=== PATIENT | female | born 1990 | race Caucasian/White ===

== ENCOUNTER → 2019-08-26 14:06 | Outpatient (CLI) | payer BC, SELFPAY ==
[2019-08-26 09:04] VITALS: BMI 20.2
[2019-08-26 16:31] LABS: Chlamydia Trachomatis by PCR Negative (Negative); Neisserai gonorrhoeae by PCR Negative (Negative); Probe Check PASS; Sample Adequacy Control PASS; Specimen Processing Control PASS
[2019-08-26 17:13] LABS: Absolute Neutrophil Count 7.3 X10^3/uL (2.0-7.7); Basophil# 0.03 X10^3/uL; Basophil% 0.3 % (0-1); Eosinophil# 0.35 X10^3/uL; Eosinophils% 3.5 % (0-5); Hematocrit 36.5 % (37-47); Hemoglobin 12.1 g/dL (12.0-15.0); Lymphocyte % 17.1 % (19-41); Mean Corp Hgb Conc 33.2 g/dL (32-36); Mean Corpuscular Hgb 29.2 pg (27.0-32.0); Mean Corpuscular Volume 88.2 fL (81-99); Mean Platelet Vol. 12.5 fl (6.2-12.0); Monocyte# 0.55 X10^3/uL; Monocyte% 5.5 % (0-10); NRBC Flagged by Analyzer 0 % (0-5); Neutrophil # 7.28 X10^3/uL (2.7-7.7); Neutrophil % 73.1 % (47-70); Platelet Count 163 K/mm3 (150-450); RBC Distribution Width CV 13.2 % (11.6-14.6); RBC Distribution Width SD 42.9 fl (35.1-43.9); Red Blood Count 4.14 M/mm3 (4.2-5.4)
[2019-08-27 01:49] LABS: Rapid Plasmin Reagin (RPR) NONREACTIVE (NONREACTIVE)
[2019-08-27 10:50] LABS: HIV - WCH Non-Reactive (Nonreactive); Hepatitis B Surface Antigen Non-Reactive (Nonreactive); Rubella IgG 56.8 IU/mL
== END ==
PROVIDERS: Referring Provider Obstetrics & Gynecology; Visit Provider Obstetrics & Gynecology
DX: Z34.80 Encounter for supervision of other normal pregnancy, unspecified trimester (principal)
CPT/HCPCS: 36415; 85025; 86592; 86703; 86762; 86850; 86900; 86901; 87086; 87340; 87491; 87591

== ENCOUNTER → 2019-10-23 09:01 | Outpatient (CLI) | payer BC, SELFPAY ==
[2019-09-29 15:07] VITALS: BMI 20.6
[2019-10-23 09:20] LABS: Absolute Neutrophil Count 5.5 X10^3/uL (2.0-7.7); Basophil# 0.02 X10^3/uL; Basophil% 0.3 % (0-1); Eosinophil# 0.46 X10^3/uL; Hematocrit 34.1 % (37-47); Hemoglobin 11.1 g/dL (12.0-15.0); Lymphocyte % 17.1 % (19-41); Mean Corp Hgb Conc 32.6 g/dL (32-36); Mean Corpuscular Hgb 28.8 pg (27.0-32.0); Mean Corpuscular Volume 88.3 fL (81-99); Mean Platelet Vol. 12.6 fl (6.2-12.0); Monocyte# 0.33 X10^3/uL; Monocyte% 4.3 % (0-10); NRBC Flagged by Analyzer 0 % (0-5); Neutrophil # 5.46 X10^3/uL (2.7-7.7); Neutrophil % 71.6 % (47-70); Platelet Count 115 K/mm3 (150-450); RBC Distribution Width SD 41.7 fl (35.1-43.9); Red Blood Count 3.86 M/mm3 (4.2-5.4); White Blood Count 7.6 K/mm3 (4.4-11.0)
== END ==
PROVIDERS: Internal Medicine Hematology & Oncology; Referring Provider Obstetrics & Gynecology; Visit Provider Obstetrics & Gynecology
DX: O99.119 Other diseases of the blood and blood-forming organs and certain disorders involving the immune mechanism complicating pregnancy, unspecified trimester (principal); D69.6 Thrombocytopenia, unspecified; Z3A.00 Weeks of gestation of pregnancy not specified
CPT/HCPCS: 36415; 85025

== ENCOUNTER → 2019-11-18 10:09 | Outpatient (CLI) | payer BC, SELFPAY ==
[2019-10-23 09:33] VITALS: BMI 20.6
[2019-11-18 10:55] LABS: Absolute Lymphocyte Count 1.28 X10^3/uL (0.83-4.51); Absolute Neutrophil Count 6.2 X10^3/uL (2.0-7.7); Basophil# 0.01 X10^3/uL; Basophil% 0.1 % (0-1); Eosinophil# 0.45 X10^3/uL; Eosinophils% 5.3 % (0-5); Hematocrit 32.6 % (37-47); Hemoglobin 10.5 g/dL (12.0-15.0); Lymphocyte # 1.28 X10^3/ul (4.0); Mean Corp Hgb Conc 32.2 g/dL (32-36); Mean Corpuscular Hgb 28.5 pg (27.0-32.0); Mean Corpuscular Volume 88.6 fL (81-99); Mean Platelet Vol. 12.7 fl (6.2-12.0); Monocyte# 0.51 X10^3/uL; NRBC Flagged by Analyzer 0 % (0-5); Neutrophil % 72.9 % (47-70); Platelet Count 114 K/mm3 (150-450); RBC Distribution Width CV 12.9 % (11.6-14.6); RBC Distribution Width SD 42.1 fl (35.1-43.9); Red Blood Count 3.68 M/mm3 (4.2-5.4); White Blood Count 8.5 K/mm3 (4.4-11.0)
== END ==
PROVIDERS: Internal Medicine Hematology & Oncology; Referring Provider Obstetrics & Gynecology; Visit Provider Obstetrics & Gynecology
DX: O99.119 Other diseases of the blood and blood-forming organs and certain disorders involving the immune mechanism complicating pregnancy, unspecified trimester (principal); D69.6 Thrombocytopenia, unspecified; Z3A.00 Weeks of gestation of pregnancy not specified
CPT/HCPCS: 36415; 85025

== ENCOUNTER → 2019-12-16 09:51 | Outpatient (CLI) | payer BC, SELFPAY ==
[2019-11-18 10:21] VITALS: BMI 20.6
[2019-12-16 10:28] LABS: Absolute Lymphocyte Count 1.36 X10^3/uL (0.83-4.51); Absolute Neutrophil Count 5.8 X10^3/uL (2.0-7.7); Basophil# 0.02 X10^3/uL; Basophil% 0.2 % (0-1); Eosinophil# 0.52 X10^3/uL; Eosinophils% 6.2 % (0-5); Hemoglobin 9.6 g/dL (12.0-15.0); Lymphocyte # 1.36 X10^3/ul (4.0); Lymphocyte % 16.3 % (19-41); Mean Corpuscular Hgb 28.2 pg (27.0-32.0); Mean Platelet Vol. 12.9 fl (6.2-12.0); Monocyte# 0.55 X10^3/uL; Monocyte% 6.6 % (0-10); NRBC Flagged by Analyzer 0 % (0-5); Neutrophil # 5.79 X10^3/uL (2.7-7.7); Neutrophil % 69.4 % (47-70); Platelet Count 123 K/mm3 (150-450); RBC Distribution Width CV 13.2 % (11.6-14.6); RBC Distribution Width SD 41.5 fl (35.1-43.9); Red Blood Count 3.41 M/mm3 (4.2-5.4); White Blood Count 8.4 K/mm3 (4.4-11.0)
[2019-12-16 10:57] LABS: Glucose Challenge Gest 1H 50g 127 mg/dL (70-140)
== END ==
PROVIDERS: Internal Medicine Hematology & Oncology; Referring Provider Obstetrics & Gynecology; Visit Provider Obstetrics & Gynecology
DX: O99.119 Other diseases of the blood and blood-forming organs and certain disorders involving the immune mechanism complicating pregnancy, unspecified trimester (principal); D69.6 Thrombocytopenia, unspecified; Z3A.00 Weeks of gestation of pregnancy not specified
CPT/HCPCS: 82950; 85025

== ENCOUNTER → 2020-01-13 11:03 | Outpatient (CLI) | payer BC, MEDICAID, SELFPAY ==
[2019-12-16 10:25] VITALS: BMI 20.6
[2020-01-13 11:34] LABS: Absolute Lymphocyte Count 1.38 X10^3/uL (0.83-4.51); Absolute Neutrophil Count 6.3 X10^3/uL (2.0-7.7); Basophil# 0.02 X10^3/uL; Basophil% 0.2 % (0-1); Eosinophil# 0.33 X10^3/uL; Eosinophils% 3.8 % (0-5); Hemoglobin 9.4 g/dL (12.0-15.0); Lymphocyte # 1.38 X10^3/ul (4.0); Lymphocyte % 15.7 % (19-41); Mean Corp Hgb Conc 31.3 g/dL (32-36); Mean Corpuscular Hgb 26.6 pg (27.0-32.0); Mean Platelet Vol. 12.7 fl (6.2-12.0); Monocyte# 0.66 X10^3/uL; Monocyte% 7.5 % (0-10); NRBC Flagged by Analyzer 0 % (0-5); Neutrophil % 71.8 % (47-70); Platelet Count 131 K/mm3 (150-450); RBC Distribution Width CV 13.9 % (11.6-14.6); RBC Distribution Width SD 43.4 fl (35.1-43.9); Red Blood Count 3.53 M/mm3 (4.2-5.4); White Blood Count 8.8 K/mm3 (4.4-11.0)
== END ==
PROVIDERS: Internal Medicine Hematology & Oncology; Referring Provider Obstetrics & Gynecology; Visit Provider Obstetrics & Gynecology
DX: O99.119 Other diseases of the blood and blood-forming organs and certain disorders involving the immune mechanism complicating pregnancy, unspecified trimester (principal); D69.6 Thrombocytopenia, unspecified; Z3A.00 Weeks of gestation of pregnancy not specified
CPT/HCPCS: 36415; 85025

== ENCOUNTER → 2020-01-21 07:51 | Outpatient (CLI) | payer BC, MEDICAID, SELFPAY ==
[2020-01-13 11:54] VITALS: BMI 20.6
[2020-01-21 07:59] VITALS: BP 122/64; PULSE 87; RESP 16; TEMP 36.5; O2SAT 100; BMI 24.1
[2020-01-21] MEDS: 0.9% NaCl Peripheral Flush Adult/Peds IV (08:24)
[2020-01-21] MEDS: 0.9% NaCl IVPB Med Flush (250 mL) 15 ML IV (08:28)
== END ==
PROVIDERS: Referring Provider Obstetrics & Gynecology; Visit Provider Obstetrics & Gynecology
DX: O99.019 Anemia complicating pregnancy, unspecified trimester (principal)
CPT/HCPCS: 96365; 96366; J1756; J7050; A4216

== ENCOUNTER → 2020-01-29 07:50 | Outpatient (CLI) | payer BC, MEDICAID, SELFPAY ==
[2020-01-13 11:54] VITALS: BMI 20.6
[2020-01-21 07:59] VITALS: BMI 24.1
[2020-01-29 08:13] VITALS: BP 119/76; PULSE 100; RESP 16; O2SAT 99; BMI 23.3
[2020-01-29] MEDS: 0.9% NaCl VAD Flush IV (08:30)
[2020-01-29 10:26] VITALS: BP 117/66; PULSE 81; RESP 16; O2SAT 99
== END ==
PROVIDERS: Referring Provider Obstetrics & Gynecology; Visit Provider Obstetrics & Gynecology
DX: O99.019 Anemia complicating pregnancy, unspecified trimester (principal)
CPT/HCPCS: 96365; 96366; J1756; J7050; A4216

== ENCOUNTER → 2020-02-05 07:58 | Outpatient (CLI) | payer BC, MEDICAID, SELFPAY ==
[2020-01-21 07:59] VITALS: BMI 24.1
[2020-02-03 11:15] VITALS: BMI 23.3
[2020-02-05 08:06] VITALS: BP 107/71; PULSE 74; RESP 16; TEMP 36.3; O2SAT 99; BMI 24.1
[2020-02-05] MEDS: 0.9% NaCl IVPB Med Flush (250 mL) 15 ML IV (08:08)
[2020-02-05] MEDS: 0.9% NaCl Peripheral Flush Adult/Peds IV (08:10)
== END ==
PROVIDERS: Referring Provider Obstetrics & Gynecology; Visit Provider Obstetrics & Gynecology
DX: O99.019 Anemia complicating pregnancy, unspecified trimester (principal)
CPT/HCPCS: 96365; 96366; J1756; J7050; A4216

== ENCOUNTER → 2020-02-17 09:14 | Outpatient (CLI) | payer MEDICAID, SELFPAY ==
[2020-02-17 09:03] VITALS: BMI 25.0
[2020-02-17 09:36] LABS: Absolute Lymphocyte Count 1.06 X10^3/uL (0.83-4.51); Absolute Neutrophil Count 3.8 X10^3/uL (2.0-7.7); Basophil# 0.03 X10^3/uL; Basophil% 0.5 % (0-1); Eosinophil# 0.42 X10^3/uL; Eosinophils% 7.1 % (0-5); Hematocrit 34.8 % (37-47); Lymphocyte # 1.06 X10^3/ul (4.0); Lymphocyte % 17.9 % (19-41); Mean Corp Hgb Conc 31.6 g/dL (32-36); Mean Corpuscular Hgb 27.9 pg (27.0-32.0); Mean Corpuscular Volume 88.3 fL (81-99); Mean Platelet Vol. 12.7 fl (6.2-12.0); Monocyte# 0.48 X10^3/uL; Monocyte% 8.1 % (0-10); NRBC Flagged by Analyzer 0 % (0-5); Neutrophil # 3.84 X10^3/uL (2.7-7.7); Neutrophil % 64.9 % (47-70); POSITIVE COUNT YES; Platelet Count 97 K/mm3 (150-450); RBC Distribution Width CV 19.2 % (11.6-14.6); RBC Distribution Width SD 60.5 fl (35.1-43.9); Red Blood Count 3.94 M/mm3 (4.2-5.4); White Blood Count 5.9 K/mm3 (4.4-11.0)
[2020-02-17 09:39] LABS: Differential Indicated SCAN CRITERIA MET
[2020-02-17 10:04] LABS: Platelet Estimate SLT DEC (ADEQ); Platelet Morphology LARGE
== END ==
PROVIDERS: Nurse Practitioner Women's Health; Referring Provider Obstetrics & Gynecology; Visit Provider Obstetrics & Gynecology
DX: O99.019 Anemia complicating pregnancy, unspecified trimester (principal); Z3A.00 Weeks of gestation of pregnancy not specified
CPT/HCPCS: 36415; 85025; 87081

== ENCOUNTER → 2020-02-24 08:19 | Outpatient (CLI) | payer MEDICAID, SELFPAY ==
[2020-02-17 09:03] VITALS: BMI 25.0
[2020-02-24 08:47] LABS: Absolute Lymphocyte Count 1.25 X10^3/uL (0.83-4.51); Absolute Neutrophil Count 4.5 X10^3/uL (2.0-7.7); Basophil# 0.02 X10^3/uL; Basophil% 0.3 % (0-1); Eosinophils% 5.9 % (0-5); Hematocrit 35.4 % (37-47); Hemoglobin 11.3 g/dL (12.0-15.0); Lymphocyte # 1.25 X10^3/ul (4.0); Lymphocyte % 18.4 % (19-41); Mean Corp Hgb Conc 31.9 g/dL (32-36); Mean Corpuscular Hgb 28.4 pg (27.0-32.0); Mean Corpuscular Volume 88.9 fL (81-99); Mean Platelet Vol. 12.3 fl (6.2-12.0); Monocyte# 0.58 X10^3/uL; Monocyte% 8.5 % (0-10); NRBC Flagged by Analyzer 0 % (0-5); Neutrophil # 4.48 X10^3/uL (2.7-7.7); Neutrophil % 65.9 % (47-70); Platelet Count 102 K/mm3 (150-450); RBC Distribution Width CV 19.1 % (11.6-14.6); RBC Distribution Width SD 61.5 fl (35.1-43.9); Red Blood Count 3.98 M/mm3 (4.2-5.4); White Blood Count 6.8 K/mm3 (4.4-11.0)
== END ==
PROVIDERS: Referring Provider Obstetrics & Gynecology; Visit Provider Obstetrics & Gynecology
DX: O99.119 Other diseases of the blood and blood-forming organs and certain disorders involving the immune mechanism complicating pregnancy, unspecified trimester (principal); D69.6 Thrombocytopenia, unspecified; Z3A.00 Weeks of gestation of pregnancy not specified
CPT/HCPCS: 36415; 85025

== ENCOUNTER → 2020-03-02 08:28 | Outpatient (CLI) | payer MEDICAID, SELFPAY ==
[2020-02-24 08:51] VITALS: BMI 25.0
[2020-03-02 09:08] LABS: Absolute Lymphocyte Count 1.25 X10^3/uL (0.83-4.51); Absolute Neutrophil Count 4.9 X10^3/uL (2.0-7.7); Basophil# 0.03 X10^3/uL; Basophil% 0.4 % (0-1); Eosinophil# 0.28 X10^3/uL; Eosinophils% 3.9 % (0-5); Hematocrit 38.6 % (37-47); Hemoglobin 11.9 g/dL (12.0-15.0); Lymphocyte # 1.25 X10^3/ul (4.0); Lymphocyte % 17.4 % (19-41); Mean Corp Hgb Conc 30.8 g/dL (32-36); Mean Corpuscular Volume 90.8 fL (81-99); Mean Platelet Vol. 12.5 fl (6.2-12.0); Monocyte# 0.58 X10^3/uL; Monocyte% 8.1 % (0-10); NRBC Flagged by Analyzer 0 % (0-5); Neutrophil # 4.92 X10^3/uL (2.7-7.7); Neutrophil % 68.5 % (47-70); Platelet Count 110 K/mm3 (150-450); RBC Distribution Width CV 18.5 % (11.6-14.6); RBC Distribution Width SD 61.1 fl (35.1-43.9); Red Blood Count 4.25 M/mm3 (4.2-5.4); White Blood Count 7.2 K/mm3 (4.4-11.0)
== END ==
PROVIDERS: Referring Provider Obstetrics & Gynecology; Visit Provider Obstetrics & Gynecology
DX: O99.119 Other diseases of the blood and blood-forming organs and certain disorders involving the immune mechanism complicating pregnancy, unspecified trimester (principal); D69.6 Thrombocytopenia, unspecified; Z3A.00 Weeks of gestation of pregnancy not specified
CPT/HCPCS: 36415; 85025

== ENCOUNTER → 2020-03-09 | Outpatient (CLI) | payer MEDICAID, SELFPAY ==
[2020-03-09 08:49] VITALS: BMI 25.0
--- NOTE | 2020-03-09 15:44 | US_ITS ---
STUDY: SECOND AND THIRD TRIMESTER OBSTETRICAL ULTRASOUND REASON FOR EXAM: Female, 29 years old SGA / FLUID LMP: June 10, 2019 TECHNIQUE: Transabdominal TECHNICAL QUALITY: Adequate. PRIOR ULTRASOUND: None. FINDINGS: There is a single intrauterine fetus. The fetus is in a cephalic presentation. There is demonstrated cardiac activity with a heart rate of 172 bpm. There is a normal amniotic fluid volume. The largest amniotic fluid pocket measures 5.76 cm. The amniotic fluid index (CELINA) is 12.42 cm. The placenta is posterior. There are Grade 3 placental changes. BIOMETRY: BPD: 9.01 cm: 36 weeks, 4 days HC: 32.92 cm: 37 weeks, 4 days AC: 34.18 cm: 38 weeks, 1 days FL: 73.0 cm: 35 weeks, 3 days CI: 82% FL/BPD: 81% FL/AC: 21% HC/AC: 0.96 age by current US: 37 weeks, 3 days. GHAZAL by current US: March 27, 2020. Estimated weight: 3269 grams, +/- 477 grams, 35 %. Age by LMP: 39 weeks, 0 days. GHAZAL by LMP: March 16, 2020. US/OB Limited With Biometrics IMPRESSION: Single intrauterine with estimated gestational age by ultrasound of 37 weeks and 3 days and an GHAZAL of March 27, 2020. Electronically Signed: Polly Mccabe MD at 17:00 EDT Tel , Service support ,
== END | disposition home or self-care (01) ==
PROVIDERS: Referring Provider Obstetrics & Gynecology; Visit Provider Obstetrics & Gynecology
DX: O26.843 Uterine size-date discrepancy, third trimester (principal); Z3A.39 39 weeks gestation of pregnancy
CPT/HCPCS: 76816

== ENCOUNTER → 2020-03-14 09:00 | Outpatient (CLI) | payer MEDICAID, SELFPAY ==
[2020-03-14 08:29] VITALS: BMI 25.0
[2020-03-14 09:11] LABS: Absolute Lymphocyte Count 1.39 X10^3/uL (0.83-4.51); Absolute Neutrophil Count 4.7 X10^3/uL (2.0-7.7); Basophil# 0.02 X10^3/uL; Basophil% 0.3 % (0-1); Eosinophil# 0.34 X10^3/uL; Eosinophils% 4.7 % (0-5); Hematocrit 40.3 % (37-47); Hemoglobin 12.6 g/dL (12.0-15.0); Lymphocyte # 1.39 X10^3/ul (4.0); Lymphocyte % 19.3 % (19-41); Mean Corp Hgb Conc 31.3 g/dL (32-36); Mean Corpuscular Hgb 28.1 pg (27.0-32.0); Mean Platelet Vol. 12.3 fl (6.2-12.0); Monocyte# 0.67 X10^3/uL; Monocyte% 9.3 % (0-10); NRBC Flagged by Analyzer 0 % (0-5); Neutrophil # 4.72 X10^3/uL (2.7-7.7); Neutrophil % 65.4 % (47-70); Platelet Count 108 K/mm3 (150-450); RBC Distribution Width CV 17.9 % (11.6-14.6); Red Blood Count 4.48 M/mm3 (4.2-5.4); White Blood Count 7.2 K/mm3 (4.4-11.0)
== END ==
PROVIDERS: Referring Provider Obstetrics & Gynecology; Visit Provider Obstetrics & Gynecology
DX: O99.119 Other diseases of the blood and blood-forming organs and certain disorders involving the immune mechanism complicating pregnancy, unspecified trimester (principal); D69.6 Thrombocytopenia, unspecified; Z3A.00 Weeks of gestation of pregnancy not specified
CPT/HCPCS: 36415; 85025; 87635; G2023; U0003

== ENCOUNTER → 2020-03-14 10:25 | Outpatient (CLI) | payer MEDICAID, SELFPAY ==
[2020-03-14 08:29] VITALS: BMI 25.0
== END ==
PROVIDERS: Visit Provider Obstetrics & Gynecology
DX: Z11.59 Encounter for screening for other viral diseases (principal)
CPT/HCPCS: 87635; G2023; U0003

== ENCOUNTER 2020-03-15 22:37 | Inpatient (IN) | payer MEDICAID, SELFPAY ==
[2020-03-14 08:29] VITALS: BMI 25.0
[2020-03-15 22:19] VITALS: BP 106/76; PULSE 98
[2020-03-15 22:20] VITALS: PULSE 111; O2SAT 98; BMI 25.5
[2020-03-15 22:21] VITALS: TEMP 37
[2020-03-15 22:35] LABS: Absolute Lymphocyte Count 1.77 X10^3/uL (0.83-4.51); Absolute Neutrophil Count 9.3 X10^3/uL (2.0-7.7); Basophil# 0.03 X10^3/uL; Basophil% 0.2 % (0-1); Eosinophil# 0.34 X10^3/uL; Eosinophils% 2.8 % (0-5); Hemoglobin 12.1 g/dL (12.0-15.0); Lymphocyte # 1.77 X10^3/ul (4.0); Lymphocyte % 14.4 % (19-41); Mean Corp Hgb Conc 31.8 g/dL (32-36); Mean Corpuscular Hgb 28.3 pg (27.0-32.0); Mean Corpuscular Volume 88.8 fL (81-99); Mean Platelet Vol. 13.2 fl (6.2-12.0); Monocyte# 0.79 X10^3/uL; Monocyte% 6.4 % (0-10); NRBC Flagged by Analyzer 0 % (0-5); Neutrophil # 9.27 X10^3/uL (2.7-7.7); Neutrophil % 75.6 % (47-70); Platelet Count 121 K/mm3 (150-450); RBC Distribution Width CV 17.9 % (11.6-14.6); RBC Distribution Width SD 57.5 fl (35.1-43.9); Red Blood Count 4.28 M/mm3 (4.2-5.4); White Blood Count 12.3 K/mm3 (4.4-11.0)
[2020-03-15] MEDS: Lactated Ringers 500 ML 999 ML IV (23:02)
[2020-03-15 23:22] VITALS: BP 121/80; PULSE 93; TEMP 37.2; O2SAT 98; O2SAT 99
[2020-03-15] MEDS: Lactated Ringers 1,000 ML 200 ML IV (23:32)
[2020-03-16] VITALS (84 sets, daily range): BP systolic 79–128; BP diastolic 49–81; PULSE 71–127; RESP 14–18; TEMP 36.4–37.4; O2SAT 95–100
[2020-03-16] MEDS: fentaNYL-bupivacaine (epidural) 100 ML BAG EPIDURAL (01:24)
[2020-03-16 01:48] LABS: Probe Check PASS; Specimen Processing Control PASS
[2020-03-16] MEDS: Lactated Ringers 500 ML 999 ML IV (02:10)
[2020-03-16] MEDS: Lactated Ringers 1,000 ML 200 ML IV (04:11)
--- NOTE | 2020-03-16 05:03 | PCM.HP.OB ---
- Problem List (1) Active labor at term Status: Acute (2) Uterine size-date discrepancy in third trimester Status: Acute Comment: growth us ordered 03/09, growth normal (3) Status: Acute Qualifiers: Comment: declined ntd, genetic and carrier testing. anatomy normal (4) Supervision of other normal Status: Acute Comment: PRR GHAZAL 03/15/20 girl PC: Chavez BF: Gaby Meeks) (5) Thrombocytopenia complicating Status: Chronic Comment: IOL 40 weeks, steroid dose pack given 37 wks, severe while last time, patient was transferred to [facility] during labor last due to low platelets. family history of ITP. s/p heme consult (6) Anemia affecting Status: Acute Qualifiers: Comment: Hem consult (7) Sterilization Status: Acute Comment: title 19 signed 01/12. plan PPTL History Date of Admission: 03/16/20 Final GHAZAL: 03/15/20 Gestational age: 40 Weeks and 1 Days History of this : This is a 29 year-old, at 40 weeks gestational age presents IAL 5 cm regular ctx, no vb lof good fm. Medical History: Medical History (Last Reviewed 03/14/20 @ 08:28 by Teodora Moe) Adenomyosis of uterus Onset Date: ~09/2018 N80.0 Exploratory laparoscopy Onset Date: ~09/2018 H/O methicillin resistant Staphylococcus aureus Onset Date: ~2017 Z86.14 Whooping cough A37.90 Surgical History: Surgical History (Last Reviewed 03/14/20 @ 08:28 by Teodora Moe) History of endoscopy Z98.890 Allergies meperidine [From Demerol] Allergy (Severe, Verified 03/15/20 10:13) Other vancomycin Allergy (Severe, Verified 03/15/20 10:13) Anaphylaxis Home Medications: Home Medications multivitamin no.47-iron fum 27 mg-folate no.1 1 mg-dha 300 mg capsule 1 cap PO DAILY cap 08/26/19 Ferrous Sulfate [Iron] 325 mg PO DAILY 02/11/20 Smoking Status: Former smoker Number of Fetus(es): 1 NST - FHR Rate Baby A Baseline: 130 Variability:: Moderate Accelerations:: 15 x 15 Decelerations:: None NST Reactive:: Appropriate for gestational age FHR Category:: Category I Uterine Activity:: q 3-5 History Past Pregnancies: Past Pregnancies Pregancy History 2 Elective abortions Hx Para 1 Spontaneous abortions Hx # Term Pregnancies 1 Ectopic pregnancies Hx # Pregnancies Multiple births # of living children 1 Past Pregnancies Del. Date Name GA/Weeks Outcome Route Bth Weight Gen Labor Lgth Anesthesia Del Locatn Provider FOB 06/16/10 Chavez 40 live - full term 6lbs 4oz Male epidural [facility] Delivery Date: 06/16/10 On 08/26/19 @ 09:21 Shara Mcelroy Started pitocin at [facility], transferred to [facility] due to thromocytopenia. Thromocytopenia throughout pregancy Labs: Mom's Problem List Problem Status Onset Code Active labor at term Acute Mom's Labs & Results 03/15/20 03/15/20 03/15/20 22:20 22:20 23:04 WBC 12.3 H RBC 4.28 Hgb 12.1 Hct 38.0 MCV 88.8 MCH 28.3 MCHC 31.8 L RDW Std Deviation 57.5 H RDW Coeff of Farhan 17.9 H Plt Count 121 L MPV 13.2 H Immature Gran % (Auto) 0.600 Neut % (Auto) 75.6 H Lymph % (Auto) 14.4 L [place] % (Auto) 6.4 Eos % (Auto) 2.8 Baso % (Auto) 0.2 Absolute Neuts (auto) 9.3 H Absolute Lymphs (auto) 1.77 Nucleated RBC % 0 COVID-19 (BREA) Not Detected Blood Type A POSITIVE Antibody Screen NEGATIVE Course Did the patient receive Yes care? Labs Blood Type: A RH: POSITIVE RPR/VDRL/Syphilis Nonreactive Rubella status Immune HbSAg Negative Date Done: 08/26/19 Chlamydia Negative Gonorrhea Negative HIV/AIDS Non-Reactive Group B Strep: Negative Current Obstetrical History Gestational Diabetes No Incompetent Cervix No Infertility No IUGR No Macrosomia No Hypertension/Pre-eclampsia No Placenta Previa/Abruption No PTL/PROM No Uterine anomaly No Oligohydramnios No Polyhydramnios No Multiple gestation No Past Medical History Asthma Yes: childhood Diabetes No Hypertension No Heart disease No Mitral valve prolapse No Neurologic/Seizure disorder/ No Migraines Kidney disease No Liver disease No Varicosities No Clotting disorders/Hx of DVT No Thyroid Dysfunction No Other medical diseases No Psychiatric disorders No Major trauma No Abnormal PAP smear Yes: nothing Sleep apnea No Mammogram in the last 2 years No Social History Alleged father Gaby Moreno Hx Smoking Yes Smoking Status Former smoker Expected Delivery Method: Spontaneous Vaginal Review of Systems Constitutional: Denies: Fever, Malaise Eyes: Denies: Blurred vision, Vision Change HEENT: Denies: Head Aches, Visual Changes Cardiovascular: Denies: Chest Pain, Palpitations Respiratory: Denies: Cough, Shortness of Breath, Wheezing Gastrointestinal: Denies: Abdominal Pain, Diarrhea, Nausea, Vomiting Genitourinary: Denies: Dysuria, Hematuria Musculoskeletal: Denies: Joint Pain, Muscle pain Skin: Denies: Lesions, Rash Neurological: Denies: Blurred vision, Focal weakness, Headaches Psychiatric: Denies: Anxiety, Depression Endocrine: Denies: Heat/ Cold Intolerance Hematologic/ Lymphatic: Denies: Easy Bruising, Easy Bleeding Physical Exam Vitals: Vital Signs Temp Pulse BP Pulse Ox 97.5 F L 97 99/62 99 03/16/20 04:15 03/16/20 04:15 03/16/20 04:15 03/16/20 04:12 General: Alert, Cooperative, No apparent distress HEENT: Atraumatic, Normocephalic. Negative for: Thyromegaly, Lymphadenopathy Cardiovascular: Regular rate Lungs: Normal air movement Abdomen: Soft, Non Tender, Gravid Neurological: Deep Tendon Reflexes 2+/4 and Symmetrical, Neuro grossly intact. Negative for: Clonus [employer]END[employer] MANAGER: Normal external genitalia. Negative for: Vulvar lesions Estimated gestational size: Appropriate for gestational size Presentation: Cephalic Cervix Dilation (cm): 5 Assessment/Plan All Active Problems (Last Reviewed 03/14/20 @ 08:28 by Teodora Moe) Active labor at term (Acute) Uterine size-date discrepancy in third trimester (Acute) (Acute) Supervision of other normal (Acute) Anemia affecting (Acute) Sterilization (Acute) H/O thrombocytopenia (Resolved) Nausea and vomiting during (Resolved) This is a 29 year-old, at 40 weeks gestational age presents IAL. Patient presents IAL, plan expectant management for , arom clear fluid. Pain management: plans epidural if platelets high enough. GBS negative. Management of any complications: h/o ITP vs gestational thrombocytopenia. per anesthesia ordered a pack of platelets I have reviewed the [facility] and made any clinically relevant updates.
--- NOTE | 2020-03-16 05:13 | OP.PCM_ITS ---
Problem List (1) Active labor at term Status: Acute (2) Uterine size-date discrepancy in third trimester Status: Acute Comment: growth us ordered 03/09, growth normal (3) Status: Acute Qualifiers: Comment: declined ntd, genetic and carrier testing. anatomy normal (4) Supervision of other normal Status: Acute Comment: PRR GHAZAL 03/15/20 girl PC: Chavez BF: Gaby Meeks) (5) Thrombocytopenia complicating Status: Chronic Comment: IOL 40 weeks, steroid dose pack given 37 wks, severe while last time, patient was transferred to [facility] during labor last due to low platelets. family history of ITP. s/p heme consult (6) Anemia affecting Status: Acute Qualifiers: Comment: Hem consult (7) Sterilization Status: Acute Comment: title 19 signed 01/12. plan PPTL Vaginal Delivery Maternal Presentation: Active Labor ial 40 weeks Amniotic Membrane Rupture Type: Artificial Amniotic Fluid Description: Bloody Final GHAZAL: 03/15/20 Gestational age: 40 Weeks and 1 Days Date of Procedure: 03/16/20 Pre-Operative Diagnosis: ial Post-Operative Diagnosis: same Surgery/ Procedure Performed: Spontaneous Vaginal Delivery Type of Anesthesia: Epidural Description of Procedure: Patient began pushing and delivered the head in the JUAN ANTONIO presentation. The head was delivered atraumatically and a loose nuchal cord ?1 was identified and easily reduced over the 's head. The anterior and posterior shoulders delivered without complication followed by the rest of the infant and the infant was placed on the maternal abdomen. Delayed cord clamping was employed for approximately 60 seconds. Cord was clamped and cut and gentle traction was applied to the cord and the placenta delivered spontaneously immediately following it was noted to be intact with three-vessel cord. The perineum and vagina were inspected and noted to have no laceration. EBL was 100 cc. Patient and tolerated delivery well. Placental Delivery Description: Spontaneous Placenta Disposition: [facility] Cord Vessel Description: 3 Vessels Cord Entanglement: Around neck x 1, loose Estimated Blood Loss: 100 A gender: Female (1 minute): 7 (5 minute): 9 Episiotomy Description: None Laceration: None Medications given after delivery: IV Pitocin Complications: None Multi Select Codes - Urinary/Genital Urinary/Genital CPT Codes: 72376 Vaginal Delivery [facility]
[2020-03-16] MEDS: Oxytocin 30 units/NS 500 ml 30 UNITS/500 ML IV.SOLN 334 UNITS IV (05:58)
[2020-03-16 07:50] LABS: Hematocrit 34.9 % (37-47); Mean Corp Hgb Conc 31.5 g/dL (32-36); Mean Corpuscular Hgb 28.3 pg (27.0-32.0); Mean Corpuscular Volume 89.7 fL (81-99); Mean Platelet Vol. 11.6 fl (6.2-12.0); Platelet Count 100 K/mm3 (150-450); RBC Distribution Width CV 18.2 % (11.6-14.6); RBC Distribution Width SD 59.5 fl (35.1-43.9); Red Blood Count 3.89 M/mm3 (4.2-5.4); White Blood Count 15.5 K/mm3 (4.4-11.0)
[2020-03-16] MEDS: Naproxen 250 MG Tablet 500 MG PO (15:30)
[2020-03-16] MEDS: Acetaminophen 500 MG Tablet 1000 MG PO (21:24)
[2020-03-17 05:11] VITALS: BP 95/61; PULSE 76
[2020-03-17 05:20] VITALS: BP 95/61; PULSE 76; RESP 16; TEMP 36.4
[2020-03-17] MEDS: Naproxen 250 MG Tablet 500 MG PO (07:28)
--- NOTE | 2020-03-17 08:44 | PCM.PN.OB ---
Patient Problems: Active and Suspected Problems (Last Reviewed 03/14/20 @ 08:28 by Teodora Moe) Active labor at term (Acute) Subjective: doing well no complaints pain controlled no CP SOB N V ambulating well tolerating po lochia moderate, going well - Physical Exam Vitals/I&O's: Vital Signs Temp Pulse Resp BP Pulse Ox 97.5 F L 76 16 95/61 99 03/17/20 05:20 03/17/20 05:20 03/17/20 05:20 03/17/20 05:20 03/16/20 16:13 Oxygen Delivery Method Room Air Weight: 153 lb 6.4 oz Body Mass Index (BMI) 25.5 Intake and Output for Last 24 Hours 03/15/20 03/16/20 03/17/20 23:59 23:59 23:59 Intake Total 500 / 500 2153.34 / 2153.34 Output Total 100 / 100 1275 / 1275 Balance 400 / 400 878.34 / 878.34 General: Alert, Oriented x3 Current Medications Acetaminophen (Tylenol) 1,000 mg PO Q8H PRN PRN PRN Reason: Pain Score 1-3/10 Last Admin: 03/16/20 21:24 Dose: 1,000 mg Documented by: Bisacodyl (Dulcolax) 10 mg RECTAL UD PRN PRN Reason: If no BM Dibucaine (Dibucaine) 1 applic TOPICAL TID PRN PRN; Protocol PRN Reason: Discomfort Hydrocortisone (Hytone) 1 applic TOPICAL TID PRN PRN; Protocol PRN Reason: Discomfort Methylergonovine Maleate (Methergine) 0.2 mg IM X1 PRN PRN Reason: Excess bleeding/uterine atony Naproxen (Naprosyn) 500 mg PO Q8H PRN PRN PRN Reason: Pain Score 1-3/10 Last Admin: 03/17/20 07:28 Dose: 500 mg Documented by: Ondansetron HCl (Zofran) 4 mg IV Q4H PRN PRN PRN Reason: Nausea Oxycodone HCl (Oxyir) 5 - 10 mg PO Q4H PRN PRN PRN Reason: Pain Score 4-10/10 Senna/Docusate Sodium (Senokot-S, Paula-Colace) 1 - 2 tablet PO DAILY PRN PRN PRN Reason: Constipation Simethicone (Mylicon) 80 mg PO PCHS PRN PRN Reason: Indigestion/Stomach pain Sodium Chloride () 5 - 15 ml IV UD PRN PRN Reason: SALINE FLUSH Medical Necessity - Tobacco Use Smoking Status: Former smoker Tobacco Use: Non-smoker Assessment/Plan All Active Problems (Last Reviewed 03/14/20 @ 08:28 by Teodora Moe) Active labor at term (Acute) Uterine size-date discrepancy in third trimester (Acute) (Acute) Supervision of other normal (Acute) Anemia affecting (Acute) Sterilization (Acute) H/O thrombocytopenia (Resolved) Nausea and vomiting during (Resolved) s/p PPD # 1 1. routine post delivery care 2. breast feeding- support given 3. rh positive 4. rubella immune
[2020-03-17 08:53] VITALS: BP 101/60; PULSE 74; RESP 16; TEMP 37
--- NOTE | 2020-03-17 08:53 | DCINST_ITS ---
Discharge Diet: No Restrictions Discharge Activity: Return to Normal Activity, May not drive while taking narcotic pain medications., May Shower May resume sexual activity in: 4-6 weeks Call your doctor if your incision/area has: Continuous Slow Oozing, Sudden Increased Bleeding, Increased Pain/ Swelling, Increased Redness, Foul Smelling Discharge Additional Instructions: If you experience any of the following, contact your healthcare provider. * Bleeding that soaks a pad every hour for 2 hours * Fever 100.4 or higher * Unrelieved incision or abdominal pain * Swelling, redness, discharge or bleeding from your incision or episiotomy site * Your incision begins to separate * Problems urinating (including inability to urinate or burning while urinating). * Visual changes * Severe headache * Flu-like symptoms * Pain or redness in one of both of your breasts * Pain, warmth, tenderness or swelling in your legs, especially the calf area * Frequent nausea and vomiting * Symptoms of depression or anxiety If you experience any of the following, call 911 or go to the nearest Emergency Room. * Chest pain * Problems breathing * Seizure activity * Partial or complete paralysis of a body part, slurred speech, weakness or drooping of the face, or a sudden inability to walk or hold your balance Allergies/Adverse Reactions: Allergies meperidine [From Demerol] Allergy (Severe, Verified 03/15/20 10:13) Other vancomycin Allergy (Severe, Verified 03/15/20 10:13) Anaphylaxis Medications to take at Discharge multivitamin no.47-iron fum 27 mg-folate no.1 1 mg-dha 300 mg capsule 1 cap PO DAILY cap 08/26/19 Ferrous Sulfate [Iron] 325 mg PO DAILY 02/11/20 Please Follow Up With: Mounika Cantu MD - [phone] When: Call to make an appointment with your doctor in 6 weeks. If you had elevated Blood pressure or 4th degree laceration you will need to be seen in 2 weeks. Primary Care Physician: Care Physician,No Primary [Primary Care Provider] - Test Results: Test results from this visit will be discussed in further detail at your follow- up appointment, if applicable.
[2020-03-17 09:19] VITALS: BP 101/60; PULSE 74
== END 2020-03-17 11:20 | disposition home or self-care (01) | DRG 560 ==
LOC: WPOUT 22:40 → WP 22:40
PROVIDERS: Admitting Provider Obstetrics & Gynecology; Visit Provider Obstetrics & Gynecology
DX: O99.12 Other diseases of the blood and blood-forming organs and certain disorders involving the immune mechanism complicating childbirth (principal); D69.6 Thrombocytopenia, unspecified; O99.02 Anemia complicating childbirth; D64.9 Anemia, unspecified; O69.81X0 Labor and delivery complicated by cord around neck, without compression, not applicable or unspecified; O26.843 Uterine size-date discrepancy, third trimester; Z3A.40 40 weeks gestation of pregnancy; Z37.0 Single live birth; Z87.891 Personal history of nicotine dependence; Z83.2 Family history of diseases of the blood and blood-forming organs and certain disorders involving the immune mechanism
CPT/HCPCS: 36415; 59025; 59050; 85025; 85027; 86850; 86900; 86901; 87635; 99218; G2023; J7120; G0378; U0003

== ENCOUNTER → 2020-04-26 16:39 | Outpatient (CLI) | payer MEDICAID, SELFPAY ==
[2020-04-26 14:36] VITALS: BMI 25.5
[2020-05-01 01:16] LABS: HPV APTIMA, High Risk Negative (Negative)
== END ==
PROVIDERS: Referring Provider Obstetrics & Gynecology; Visit Provider Obstetrics & Gynecology
DX: Z12.4 Encounter for screening for malignant neoplasm of cervix (principal)
CPT/HCPCS: 87624; 88175; G0145

== ENCOUNTER → 2020-04-28 18:05 | Outpatient (CLI) | payer MEDICAID, SELFPAY ==
[2020-04-26 14:36] VITALS: BMI 25.5
== END ==
PROVIDERS: Referring Provider Anesthesiology; Visit Provider Anesthesiology
DX: Z11.59 Encounter for screening for other viral diseases (principal); O99.019 Anemia complicating pregnancy, unspecified trimester; Z3A.00 Weeks of gestation of pregnancy not specified
CPT/HCPCS: 87635; 94799; C9803; U0003

== ENCOUNTER → 2020-07-15 | Outpatient (CLI) | payer MEDICAID, SELFPAY ==
--- NOTE | 2020-05-03 06:31 | PCM.HP.STD ---
Problem List (1) Sterilization Status: Acute History of Present Illness Date of Admission: 05/03/20 The patient is a 29 year old F presents for sterilization. Past Medical History Medical History: Medical History (Last Reviewed 04/26/20 @ 14:27 by Teodora Moe) Adenomyosis of uterus Onset Date: ~09/2018 N80.0 Exploratory laparoscopy Onset Date: ~09/2018 H/O methicillin resistant Staphylococcus aureus Onset Date: ~2016 Z86.14 Whooping cough A37.90 Allergies meperidine [From Demerol] Allergy (Severe, Verified 04/26/20 14:28) Other vancomycin Allergy (Severe, Verified 04/26/20 14:28) Anaphylaxis Home Medications: Ambulatory Orders Medication Instructions Recorded NK 04/25/20 Surgical History: Surgical History (Last Reviewed 04/26/20 @ 14:27 by Teodora Moe) History of endoscopy Z98.890 Smoking Status: Former smoker Tobacco Use: Non-smoker Review of Systems Constitutional: Denies: Fever, Malaise Eyes: Denies: Blurred vision, Vision Change HEENT: Denies: Head Aches, Visual Changes Cardiovascular: Denies: Chest Pain, Palpitations Respiratory: Denies: Cough, Shortness of Breath, Wheezing Gastrointestinal: Denies: Abdominal Pain, Diarrhea, Nausea, Vomiting Genitourinary: Denies: Dysuria, Hematuria Musculoskeletal: Denies: Joint Pain, Muscle pain Skin: Denies: Lesions, Rash Neurological: Denies: Blurred vision, Focal weakness, Headaches Psychiatric: Denies: Anxiety, Depression Endocrine: Denies: Heat/ Cold Intolerance Hematologic/ Lymphatic: Denies: Easy Bruising, Easy Bleeding VTE Information - Inpt Only VTE Present on Admission: No - Physical Exam Vitals/I&O's: Body Mass Index (BMI) 25.5 General: Alert, Oriented x3, Cooperative HEENT: Atraumatic, EOMI, Normocephalic Neck: Supple Lungs: Clear to auscultation, Normal air movement Cardiovascular: Regular rate, No murmurs Abdomen: Bowel Sounds Present, Soft, Non Tender Extremities: No edema Skin: No rashes, No breakdown Musculoskeletal: No Tenderness to Palpation of Joints or Extremities Neurological: Neuro grossly intact Psych/Mental Status: Normal Affect, Appropriate Assessment/Plan All Active Problems (Last Reviewed 04/26/20 @ 14:27 by Teodora Montalvo Sterilization (Acute) Active labor at term (Resolved) Anemia affecting (Resolved) H/O thrombocytopenia (Resolved) Nausea and vomiting during (Resolved) (Resolved) Sterilization (Resolved) Supervision of other normal (Resolved) Thrombocytopenia complicating (Resolved) Uterine size-date discrepancy in third trimester (Resolved) 29 yo presents for sterilization plan laparoscopic bilateral salpingectomy After discussing the patient's diagnosis and treatment plan options, patient wishes to proceed with surgical management. I have discussed with the patient the risks, benefits, and alternatives of the procedure which include but are not limited to risks of anesthesia, bleeding, infection, possible damage to bowel, bladder, or surrounding vasculature which could lead to additional surgery to evaluate any complications. Patient agrees to procedure and wishes to proceed. ACOG/uptodate references given for additional information regarding procedure. UPDATE- I have seen the patient and performed any clinically relevant updates to the history and physical exam. Mounika Cantu MD
[2020-05-10 13:50] VITALS: BMI 21.8
== END | disposition home or self-care (01) ==
LOC: SDC 13:33
PROVIDERS: Referring Provider Obstetrics & Gynecology; Visit Provider Obstetrics & Gynecology
DX: Z01.818 Encounter for other preprocedural examination (principal); Z20.828 Contact with and (suspected) exposure to other viral communicable diseases; Z87.891 Personal history of nicotine dependence

== ENCOUNTER → 2020-10-17 14:45 | Outpatient (CLI) | payer MEDICAID, SELFPAY ==
[2020-10-17 14:10] VITALS: BMI 22.8
[2020-10-17 15:00] LABS: Absolute Neutrophil Count 7.2 X10^3/uL (2.0-7.7); Basophil# 0.03 X10^3/uL; Basophil% 0.3 % (0-1); Eosinophil# 0.23 X10^3/uL; Eosinophils% 2.5 % (0-5); Hematocrit 37.5 % (37-47); Hemoglobin 12.7 g/dL (12.0-15.0); Lymphocyte % 14.1 % (19-41); Mean Corp Hgb Conc 33.9 g/dL (32-36); Mean Corpuscular Hgb 29.7 pg (27.0-32.0); Mean Corpuscular Volume 87.6 fL (81-99); Mean Platelet Vol. 12.2 fl (6.2-12.0); Monocyte% 4.4 % (0-10); NRBC Flagged by Analyzer 0 % (0-5); Neutrophil # 7.19 X10^3/uL (2.7-7.7); Neutrophil % 78.3 % (47-70); Platelet Count 148 K/mm3 (150-450); RBC Distribution Width CV 11.9 % (11.6-14.6); RBC Distribution Width SD 38.5 fl (35.1-43.9); Red Blood Count 4.28 M/mm3 (4.2-5.4); White Blood Count 9.2 K/mm3 (4.4-11.0)
[2020-10-17 17:05] LABS: Amphetamine Urine VISTA NEGATIVE (<1000 ng/mL); Barbiturate Urine VISTA NEGATIVE (< 200 ng/mL); Benzodiazepine Urine VISTA NEGATIVE (< 200 ng/mL); Cocaine Urine VISTA NEGATIVE (< 300 ng/mL); Ecstacy Urine VISTA NEGATIVE (< 500 ng/mL); Methadone Urine VISTA NEGATIVE (< 300 ng/mL); PCP Urine VISTA NEGATIVE (< 25 ng/mL); THC Urine VISTA NEGATIVE (< 50 ng/mL); Vista UDS pH Range 5
[2020-10-19 15:01] LABS: HIV - WCH Non-Reactive (Nonreactive); Hepatitis B Surface Antigen Non-Reactive (Nonreactive); Hepatitis C Antibody Non-Reactive (Nonreactive); Rubella IgG Reactive (Nonreactive)
[2020-10-20 03:03] LABS: Rapid Plasmin Reagin (RPR) NONREACTIVE (NONREACTIVE)
[2020-10-20 03:07] LABS: Chlamydia By Nucleic Acid AMP Negative (Negative)
[2020-10-20 13:05] LABS: Gonococcus By Nucleic Acid AMP Negative (Negative)
== END ==
PROVIDERS: Referring Provider Obstetrics & Gynecology; Visit Provider Obstetrics & Gynecology
DX: Z34.90 Encounter for supervision of normal pregnancy, unspecified, unspecified trimester (principal)
CPT/HCPCS: 36415; 80307; 85025; 86592; 86703; 86762; 86803; 86850; 86900; 86901; 87086; 87340; 87491; 87591

== ENCOUNTER → 2021-02-23 08:34 | Outpatient (CLI) | payer MEDICAID, SELFPAY ==
[2021-02-10 14:47] VITALS: BMI 23.6
[2021-02-23 08:52] LABS: Absolute Lymphocyte Count 0.99 X10^3/uL (0.83-4.51); Absolute Neutrophil Count 4.7 X10^3/uL (2.0-7.7); Basophil# 0.02 X10^3/uL; Basophil% 0.3 % (0-1); Eosinophil# 0.41 X10^3/uL; Eosinophils% 6.2 % (0-5); Hematocrit 31.5 % (37-47); Lymphocyte # 0.99 X10^3/ul (0.83-4.51); Mean Corp Hgb Conc 31.7 g/dL (32-36); Mean Corpuscular Hgb 27.8 pg (27.0-32.0); Mean Corpuscular Volume 87.5 fL (81-99); Mean Platelet Vol. 12.9 fl (6.2-12.0); Monocyte# 0.41 X10^3/uL; Monocyte% 6.2 % (0-10); NRBC Flagged by Analyzer 0 % (0-5); Neutrophil # 4.72 X10^3/uL (2.7-7.7); Neutrophil % 71.2 % (47-70); Platelet Count 108 K/mm3 (150-450); RBC Distribution Width SD 41.1 fl (35.1-43.9); White Blood Count 6.6 K/mm3 (4.4-11.0)
[2021-02-23 09:06] LABS: Glucose Challenge Gest 1H 50g 145 mg/dL (70-140)
== END ==
PROVIDERS: Nurse Practitioner Women's Health; Referring Provider Obstetrics & Gynecology; Visit Provider Obstetrics & Gynecology
DX: O99.119 Other diseases of the blood and blood-forming organs and certain disorders involving the immune mechanism complicating pregnancy, unspecified trimester (principal); D69.6 Thrombocytopenia, unspecified; Z13.1 Encounter for screening for diabetes mellitus; Z3A.00 Weeks of gestation of pregnancy not specified
CPT/HCPCS: 36415; 82950; 85025

== ENCOUNTER → 2021-02-27 07:34 | Outpatient (CLI) | payer MEDICAID, SELFPAY ==
[2021-02-23 09:05] VITALS: BMI 23.6
--- NOTE | 2021-02-27 07:42 | US_ITS ---
STUDY: SECOND AND THIRD TRIMESTER OBSTETRICAL ULTRASOUND - LIMITED REASON FOR EXAM: Female, 30 years old placenta follow-up LMP: 08/07/2020. PRIOR ULTRASOUND: None. TECHNIQUE: Transabdominal and Transvaginal TECHNICAL QUALITY: Adequate. FINDINGS: There is a single intrauterine fetus. The fetus is in a cephalic presentation. There is demonstrated cardiac activity with a heart rate of 137 bpm. There is a normal amniotic fluid volume. The placenta is anterior in location and is not low lying. There are Grade 0 placental changes. The cervix measures 3.5 cm in length. BIOMETRY: Age by LMP: 29 weeks, 1 days. GHAZAL by LMP: 05/14/2021. IMPRESSION: The placenta is anterior in location and is not low-lying. Electronically Signed: Slim Veliz MD at 9:22 EDT , Service support , STUDY: FIRST TRIMESTER OBSTETRICAL ULTRASOUND REASON FOR EXAM: Female, 30 years old placenta follow-up LMP: 08/07/2020 TECHNIQUE: Transvaginal TECHNICAL QUALITY: Adequate. PRIOR ULTRASOUND: None. FINDINGS: The cervix measures 3.5 cm in length. The placenta is in anterior position and not low-lying. US/OB Limited (No Biometrics) IMPRESSION: The cervical length is 3.5 cm. The placenta is anterior in location and not low-lying. Electronically Signed: Slim Veliz MD at 9:26 EDT , Service support ,
== END ==
PROVIDERS: Referring Provider Nurse Practitioner Women's Health; Visit Provider Nurse Practitioner Women's Health
DX: O44.42 Low lying placenta NOS or without hemorrhage, second trimester (principal); Z3A.00 Weeks of gestation of pregnancy not specified
CPT/HCPCS: 76815; 76817

== ENCOUNTER → 2021-02-28 06:42 | Outpatient (CLI) | payer MEDICAID, SELFPAY ==
[2021-02-23 09:05] VITALS: BMI 23.6
[2021-02-28 07:29] LABS: Glucose GTT-Gestation. Fasting 79 mg/dL (<105)
[2021-02-28 08:44] LABS: Glucose GTT-Gestational 1 Hr 120 mg/dL (<190)
[2021-02-28 09:59] LABS: Glucose GTT-Gestational 2 Hr 114 mg/dL (<165)
[2021-02-28 11:07] LABS: Glucose GTT-Gestational 3 Hr 106 L (<145)
== END ==
PROVIDERS: Referring Provider Nurse Practitioner Women's Health; Visit Provider Nurse Practitioner Women's Health
DX: Z13.1 Encounter for screening for diabetes mellitus (principal)
CPT/HCPCS: 36415; 82951; 82952

== ENCOUNTER → 2021-04-07 16:08 | Outpatient (CLI) | payer MEDICAID, SELFPAY ==
[2021-04-07 15:00] VITALS: BMI 26.2
[2021-04-07 16:40] LABS: Absolute Lymphocyte Count 1.35 X10^3/uL (0.83-4.51); Absolute Neutrophil Count 6.2 X10^3/uL (2.0-7.7); Basophil# 0.03 X10^3/uL; Basophil% 0.3 % (0-1); Eosinophil# 0.39 X10^3/uL; Eosinophils% 4.4 % (0-5); Hemoglobin 10.1 g/dL (12.0-15.0); Lymphocyte # 1.35 X10^3/ul (0.83-4.51); Lymphocyte % 15.2 % (19-41); Mean Corp Hgb Conc 31.6 g/dL (32-36); Mean Corpuscular Volume 82.3 fL (81-99); Mean Platelet Vol. 12.2 fl (6.2-12.0); Monocyte# 0.87 X10^3/uL; Monocyte% 9.8 % (0-10); NRBC Flagged by Analyzer 0 % (0-5); Neutrophil # 6.19 X10^3/uL (2.7-7.7); Neutrophil % 69.5 % (47-70); Platelet Count 116 K/mm3 (150-450); RBC Distribution Width SD 41.4 fl (35.1-43.9); Red Blood Count 3.89 M/mm3 (4.2-5.4); White Blood Count 8.9 K/mm3 (4.4-11.0)
== END ==
PROVIDERS: Referring Provider Obstetrics & Gynecology; Visit Provider Obstetrics & Gynecology
DX: O99.019 Anemia complicating pregnancy, unspecified trimester (principal); O99.119 Other diseases of the blood and blood-forming organs and certain disorders involving the immune mechanism complicating pregnancy, unspecified trimester; D69.6 Thrombocytopenia, unspecified; Z3A.00 Weeks of gestation of pregnancy not specified
CPT/HCPCS: 36415; 85025

== ENCOUNTER → 2021-04-21 16:44 | Outpatient (CLI) | payer MEDICAID, SELFPAY ==
[2021-04-21 14:59] VITALS: BMI 26.2
== END ==
PROVIDERS: Referring Provider Obstetrics & Gynecology; Visit Provider Obstetrics & Gynecology
DX: Z34.90 Encounter for supervision of normal pregnancy, unspecified, unspecified trimester (principal)
CPT/HCPCS: 87081

== ENCOUNTER 2021-04-29 05:15 | Outpatient (CLI) | payer MEDICAID, SELFPAY ==
[2021-04-28 14:51] VITALS: BMI 26.2
[2021-04-29 05:31] VITALS: BP 123/82; PULSE 103; PULSE 120; TEMP 36.6; O2SAT 98
[2021-04-29 05:41] VITALS: BMI 25.5
[2021-04-29 06:06] VITALS: PULSE 78; TEMP 36.5; O2SAT 99
--- NOTE | 2021-04-29 08:42 | OB.TRI.PN_ITS ---
Progress Notes Progress Note: Patient presents for triage evaluation secondary to contractions. Cervix unchanged from exam in office. Contractions decreased in frequency on arrival. Declined recheck. Discharged to home in stable condition FHT: Moderate variability reactive no decelerations category I tracing [place]: Q5-7 Contractions Assessment and plan: Reactive NST, reassuring maternal and status patient discharged to home to follow-up at next scheduled visit. See problem list details for additional plan information. Charges/Coding Procedures Urinary/Genital [id number]: [id number] non-stress test Interp
== END 2021-04-29 06:20 | disposition home or self-care (01) ==
LOC: WPOUT 05:21 → WP 05:22
PROVIDERS: Visit Provider Obstetrics & Gynecology
DX: O62.9 Abnormality of forces of labor, unspecified (principal); Z3A.00 Weeks of gestation of pregnancy not specified
CPT/HCPCS: 59025

== ENCOUNTER 2021-05-02 23:31 | Inpatient (IN) | payer MEDICAID, SELFPAY ==
[2021-05-02 23:23] VITALS: TEMP 36.6
[2021-05-02 23:24] VITALS: BP 132/83; PULSE 134
[2021-05-02 23:30] VITALS: PULSE 103; O2SAT 98
[2021-05-02 23:38] VITALS: BMI 25.7
[2021-05-02] MEDS: Lactated Ringers 1,000 ML 50 ML IV (23:50)
[2021-05-03] VITALS (32 sets, daily range): BP systolic 99–128; BP diastolic 54–93; PULSE 70–115; RESP 16–18; TEMP 36.5–37.5; O2SAT 97–100
[2021-05-03 00:11] LABS: Absolute Lymphocyte Count 1.66 X10^3/uL (0.83-4.51); Absolute Neutrophil Count 6.7 X10^3/uL (2.0-7.7); Basophil# 0.04 X10^3/uL; Basophil% 0.4 % (0-1); Eosinophil# 0.44 X10^3/uL; Eosinophils% 4.6 % (0-5); Hematocrit 31.7 % (37-47); Hemoglobin 9.5 g/dL (12.0-15.0); Lymphocyte # 1.66 X10^3/ul (0.83-4.51); Lymphocyte % 17.2 % (19-41); Mean Corpuscular Hgb 24.4 pg (27.0-32.0); Mean Corpuscular Volume 81.5 fL (81-99); Monocyte# 0.66 X10^3/uL; Monocyte% 6.9 % (0-10); NRBC Flagged by Analyzer 0 % (0-5); Neutrophil # 6.73 X10^3/uL (2.7-7.7); Neutrophil % 69.9 % (47-70); Platelet Count 111 K/mm3 (150-450); RBC Distribution Width CV 14.7 % (11.6-14.6); Red Blood Count 3.89 M/mm3 (4.2-5.4); White Blood Count 9.6 K/mm3 (4.4-11.0)
[2021-05-03] MEDS: 0.9% Saline Lock 10 ML Syringe IV ×3 (02:41→07:40)
--- NOTE | 2021-05-03 02:42 | HP.PCM.OB_ITS ---
HPI - General General Date of Admission: 05/02/21 HPI Narrative EWA ALVARES, is a 30 F who presents in active labor 4-5 cm with regular contractions Maternal Data Information GHAZAL Calculator Estimated Delivery Date Method Current WG Current Estimate 05/14/21 LMP (Certain) 38w 3d Other Estimates 05/17/21 Ultrasound #1 38w 0d PFSH PFSH Medical History (Updated 05/03/21 @ 02:[address] Mounika Cantu MD) Adenomyosis of uterus (~09/2018) Exploratory laparoscopy (~09/2018) H/O methicillin resistant Staphylococcus aureus (~2016) History of tetanus, diphtheria, and acellular pertussis booster vaccination (Tdap) Whooping cough Home Medications ferrous sulfate 325 mg (65 mg iron) tablet 325 mg PO DAILY 10/11/20 [History Last Taken Unknown] multivitamin no.47-iron fum 27 mg-folate no.1 1 mg-dha 300 mg capsule 1 cap PO DAILY 10/11/20 [History Last Taken Unknown] Allergy/AdvReac Type Severity Reaction Status Date / Time meperidine [From Demerol] Allergy Severe Other Verified 05/02/21 23:39 vancomycin Allergy Severe Anaphylaxis Verified 05/02/21 23:39 Family History Aunt Breast cancer Grandfather Lung cancer Surgical History History of endoscopy History of surgery Social History adopted: No household members: family housing: house number of children: 1 current occupational status: employed current occupation: [employer] pets and animals: Yes history of recent travel: Yes sexually active: Yes Smoking Status: Former smoker second hand exposure: No alcohol intake: current alcohol intake frequency: a few times a month substance use type: does not use seatbelt use: always do you feel safe at home: Yes additional social history: 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 Date Name GA/Weeks Outcome Route Bth Weight Infant Gen Labor Lgth Anesthesia Del Locatn Provider FOB 10/01/10 Chavez 40 live - full term 6lbs 4oz Male epidural [facility] 03/16/20 Rachel 40 live - full term 6lbs 15oz Female e pidural [facility] KAR Griffin Delivery Date: 06/16/[address] [facility], transferred to [facility] due to thromocytopenia. Thromocytopenia throughout pregancy Shara Mcelroy Delivery Date: 03/16/20 gestational thyrombocytopenia ?ITP Shara Mcelroy Visit Details Expected Delivery Route/Plan Labor Preferences- CB/BF classes: no labor support person: Gaby labor intervention preferences: [] pain management options preferred: epidural cut cord/dad catch: yes : yes PP control planned: discussed/vasectomy discussed possible routes of delivery and associated risks: [] special requests: [] Plans flu vaccine: no tdap vaccine: given rhogam: NA LARC form signed: yes movement and labor precautions reviewed. Problem list reviewed and updated with the most current plan of care details and appropriate orders placed. Relevant counseling for the gestational age provided. Continue routine care and follow up unless otherwise noted in visit notes/problem list details OB Flowsheet Initial Weight: 133 lb Date -?-?-?-?-?-?-?-?-?-?-?-?- EGA Weight BP Urine Prot -?-?-?-?-?-?-?-?-?-?-?-?- Glucose FHR FuHt Pres Dilation -?-?-?-?-?-?-?-?-?-?-?-?- Effaced St Visit Note 10/17/20 -?-?-?-?-?-?-?-?-?-?-?-?- 10w 1d 133 lb (+0 oz) 132/84 -?-?-?-?-?-?-?-?-?-?-?-?- 195 -?-?-?-?-?-?-?-?-?-?-?-?- SM- CRL cons wit h LMP SM- CRL cons with LMP 2.5 cm 11/16/20 -?-?-?-?-?-?-?-?-?-?-?-?- 14w 3d 136 lb (+3 lb) 114/72 Negative -?-?-?-?-?-?-?-?-?-?-?-?- Negative 155 -?-?-?-?-?-?-?-?-?-?-?-?- GP - no cramping or bleeding. PRR. Anatomy scan ordered. 12/14/20 -?-?-?-?-?-?-?-?-?-?-?-?- 18w 3d 137 lb (+4 lb) 122/82 Negative -?-?-?-?-?-?-?-?-?-?-?-?- Negative 156 -?-?-?-?-?-?-?-?-?-?-?-?- -Denies concer ns. Feeling some movements. No VB, LOF. US sched 12/2901/05/21 -?-?-?-?-?-?-?-?-?-?-?-?- 21w 4d 138 lb (+5 lb) 102/62 Negative -?-?-?-?-?-?-?-?-?-?-?-?- Negative 145 -?-?-?-?-?-?-?-?-?-?-?-?- SM- no vb lof go od fm 02/10/21 -?-?-?-?-?-?-?-?-?-?-?-?- 26w 5d 145 lb (+12 lb) 124/68 Negative -?-?-?-?-?-?-?-?-?-?-?-?- Negative 140 26 -?-?-?-?-?-?-?-?-?-?-?-?- GP - no LOF, VB, DFM, ctx. Engaged last weekend! Siria is a photostatic copy maker and pulled her over then proposed. GCT next visit. 02/23/21 -?-?-?-?-?-?-?-?-?-?-?-?- 28w 4d 144 lb 6 oz (+11 lb 6 oz) 112/62 Trace -?-?--?-?-?-?-?-?-?-?-?-?- Negative 152 28 -?-?-?-?-?-?-?-?-?-?-?-?- MH-No VB, LOF. G ood FM. US to recheck low placenta. 28 w labs, tdap, larc 03/10/21 -?-?-?-?-?-?-?-?-?-?-?-?- 30w 5d 146 lb (+13 lb) 122/80 Negative -?-?-?-?-?-?-?-?-?-?-?-?- Negative 140 31 -?-?-?-?-?-?-?-?-?-?-?-?- SM- no vb lof go od fm no reuglar ctx- some jyoti michael 03/24/21 -?-?-?-?-?-?-?-?-?-?-?-?- 32w 5d 147 lb 4 oz (+14 lb 4 oz) 128/70 Trace -?-?-?-?-?-?-?-?-?-?-?-?- Negative 140 32 -?-?-?-?-?-?-?-?-?-?-?-?- GP - no LOF, VB, DFM, ctx. Denies complaints. 04/07/21 -?-?--?-?-?-?-?-?-?-?-?-?- 34w 5d 153 lb (+20 lb) 118/72 Trace -?-?-?-?-?-?-?-?-?-?-?-?- Negative 140 35 Breech -?-?-?-?-?-?-?-?-?-?-?-?- SM- no vb lof go od fm no regular ctx 04/21/21 -?-?-?-?-?-?-?-?-?-?-?-?- 36w 5d 151 lb (+18 lb) 110/74 Negative -?-?-?-?-?-?-?--?-?-?-?-?- Negative 140 37 Cephalic 3 -?-?-?-?-?-?-?-?-?-?-?-?- SM- no vb lof go od fm no regular ctx discussed platelet count and medrol dose pack, to take next week. did with last and helped counts 04/28/21 -?-?-?-?-?-?-?-?-?-?-?-?- 37w 5d 153 lb (+20 lb) 120/84 -?-?-?-?-?-?-?-?-?-?-?-?- 145 38 Cephalic 4 -?-?-?-?-?-?-?-?-?-?-?-?- 60 -2 GP - no LO F, VB, DFM, ctx. Denies complaints. 05/02/21 -?-?-?-?-?-?-?-?-?-?-?-?- 38w 2d 154 lb 6.4 oz (+21 lb 6.4 oz) 132/83 128/74 117/60 115/76 -?-?-?-?-?-?-?-?-?-?-?-?- -?-?-?-?-?-?-?-?-?-?-?-?- NST FHR Rate Baby A Baseline: 140 Variability:: Moderate Accelerations:: 15 x 15 Decelerations:: None NST Reactive:: Yes FHR Category:: Category I Uterine Activity:: q3-5 ROS Constitutional Constitutional: Reports systems reviewed and no addt'l complaints, except as documented ENT HEENT: Reports systems reviewed and no addt'l complaints, except as documented Cardiovascular Cardiovascular: Reports systems reviewed and no addt'l complaints, except as documented Respiratory/Chest Respiratory/Chest: Reports systems reviewed and no addt'l complaints, except as documented Gastrointestinal Gastrointestinal: Reports systems reviewed and no addt'l complaints, except as documented and nausea; Denies abdominal pain Genitourinary Genitourinary: Reports systems reviewed and no addt'l complaints, except as documented, contractions Details: present and frequency (regular ) and movement Details: present Musculoskeletal Musculoskeletal: Reports systems reviewed and no addt'l complaints, except as documented Integumentary Integumentary: Reports as per HPI Neurologic Neurologic: Reports systems reviewed and no addt'l complaints, except as documented Endocrine Endocrinology: Reports systems reviewed and no addt'l complaints, except as documented Vital Signs Vital Signs Vital Signs: 05/02/21 23:23 05/02/21 23:24 05/02/21 23:30 Temperature 97.9 F Temperature Source Tympanic Pulse Rate 134 H 103 H Blood Pressure 132/83 H BP Systolic 132 BP Diastolic 83 Pulse Ox 98 05/03/21 00:08 05/03/21 00:12 05/03/21 00:47 Temperature 99.0 F 98.9 F Temperature Source Temporal Pulse Rate 92 Blood Pressure 128/74 H BP Systolic 128 BP Diastolic 74 Pulse Ox 99 99 05/03/21 01:15 05/03/21 01:48 05/03/21 02:30 Temperature 98.8 F 99.0 F Temperature Source Pulse Rate 100 89 115 H Blood Pressure 117/60 115/76 BP Systolic 117 115 BP Diastolic 60 76 Pulse Ox 97 Weight Weight: 154 lb 6.4 oz Body Mass Index (BMI) 25.7 Physical Exam Const alert, oriented x3 and healthy appearing Constitutional Narrative: uncomfortable with contractions HEENT normocephalic and moist oral mucous membranes Head and Scalp: atraumatic Neck full ROM, no lymphadenopathy, supple and thyroid normal General: trachea midline Thyroid: thyroid normal Lymph Lymphatic: no lymphadenopathy noted Chest inspection of chest normal Resp normal respiratory effort Cardio regular rate GI normal to inspection, nondistended, normoactive bowel sounds, soft to palpation and non-tender Inspection: gravid external exam normal Bimanual Exam - Vag & Uterus: uterus non-tender Manual OB Exam: estimated gestational size appropriate, presentation cephalic, dilated, effaced and station Extremity normal to inspection General Extremity: Negative for edema Skin no rashes or lesions noted Neuro deep tendon reflexes 2+ bilaterally Motor Exam: strength 5/5 throughout and clonus absent Psych mental status grossly normal Labs Labs Labs: Blood Type A POSITIVE Antibody Screen NEGATIVE Hct 31.7 % (37-47) L Hgb 9.5 g/dL (12.0-15.0) L Pap Smear Negative Obstetrics US Rubella IgG Antibody Reactive (Nonreactive) Hep Bs Antigen Non-Reactive (Nonreactive) Neisseria gonorrhoeae DNA (BREA) Negative (Negative) HIV 1&2 Antibody Non-Reactive (Nonreactive) C.trachomatis DNA (PCR) Negative (Negative) Glucose 1 Hr 50 gm 145 mg/dL (70-140) H Rhogam given: No Assessment & Plan (1) Thrombocytopenia complicating : COMMENT: heme consult with last . steroids at 37 weeks. gestational and nl platelets at 6 wkPPV. patient was transferred to [facility] during labor first due to low platelets. family history of ITP. (2) Supervision of high risk , antepartum: COMMENT: PRR GHAZAL: 05/14/21 boy PC: Rachel Byrne BF: Gaby Meeks) (3) Abnormal glucose complicating childbirth: COMMENT: 3 hr GTT normal (4) Anemia affecting : COMMENT: iron, repeat cbc (5) : QUALIFIERS: Weeks of gestation: 37 weeks Qualified Code(s): Z3A. 37 - 37 weeks gestation of COMMENT: Declines NIPT, carrier, and AFP. Anatomy nl; NEG GBS (6) Active labor at term: PLAN: Patient presents IAL, plan expectant management for , pitocin/AROM if needed. Pain management: Prefers minimal intervention. GBS negative. Management of any complications: Thrombocytopenia, stable I have reviewed the [facility] and made any clinically relevant updates.
[2021-05-03] MEDS: Lactated Ringers 500 ML 999 ML IV (04:38)
[2021-05-03] MEDS: Oxytocin 30 units/NS 500 ml 30 UNITS/500 ML IV.SOLN 334 UNITS IV (05:14)
[2021-05-03] MEDS: Methylergonovine 0.2 MG/ML Ampul IM (05:20)
--- NOTE | 2021-05-03 05:32 | OP.PCM_ITS ---
Assessment & Plan (1) Active labor at term: (2) Thrombocytopenia complicating : COMMENT: heme consult with last . steroids at 37 weeks. gestational and nl platelets at 6 wkPPV. patient was transferred to [facility] during labor first due to low platelets. family history of ITP. (3) Supervision of high risk , antepartum: COMMENT: PRR GHAZAL: 05/14/21 boy PC: Rachel Byrne BF: Gaby Meeks) (4) Abnormal glucose complicating childbirth: COMMENT: 3 hr GTT normal (5) Anemia affecting : COMMENT: iron, repeat cbc (6) : QUALIFIERS: Weeks of gestation: 37 weeks Qualified Code(s): Z3A.37 - 37 weeks gestation of COMMENT: Declines NIPT, carrier, and AFP. 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: COMMENT: methergine pitocin bimanual massage Maternal Data Information GHAZAL Calculator Estimated Delivery Date Method Current WG Current Estimate 05/14/21 LMP (Certain) 38w 3d Other Estimates 05/17/21 Ultrasound #1 38w 0d Vaginal Delivery Operative Information Date of Procedure: 05/03/21 Pre-Operative Diagnosis: IAL Post-Operative Diagnosis: same Surgery / Procedure Performed: Spontaneous Vaginal Delivery Type of Anesthesia: None Special Medications: Methergine Estimated Blood Loss: 500 Fluids Replaced: crystalloid Findings Description of Procedure: Patient began pushing and delivered the head in the [JO] presentation. The head was delivered atraumatically and a tight nuchal cord x1 was identified and with manipulation of the shoulders with woodscrew to release tension off the cord. The anterior should was delivered and cord cut on the perinuem and posterior shoulders delivered without complication followed by the rest of the and the infant was placed on the maternal abdomen. Cord was clamped and cut and gentle traction was applied to the cord and the placenta delivered spontaneously immediately following it was noted to be intact with three-vessel cord. The perineum and vagina were inspected and [noted to have no laceration]. EBL was 500 cc due to some uterine atony without hemorrhage treated with bimanual massage Pitocin and 1 dose of Methergine.. Patient and infant tolerated delivery well. Presentation: JO Amniotic Membrane Rupture Type: Artificial Amniotic Fluid Description: Clear Placental Delivery Description: Spontaneous Placenta Disposition: [facility] Cord Vessel Description: 3 Vessels Cord Entanglement: Around neck x 1, tight A Gender: Male Delayed Cord Clamping: Yes Post Vaginal Delivery Medications Given After Delivery: IV Pitocin and IM Methergin Episiotomy Description: None Laceration: None Complication Complications: None Procedures Urinary/Genital [id number]: 98250 Vaginal Delivery+PP Care([facility])
[2021-05-03 06:00] LABS: Absolute Lymphocyte Count 1.07 X10^3/uL (0.83-4.51); Absolute Neutrophil Count 10.4 X10^3/uL (2.0-7.7); Basophil# 0.03 X10^3/uL; Basophil% 0.2 % (0-1); Eosinophil# 0.24 X10^3/uL; Eosinophils% 1.9 % (0-5); Hematocrit 29.9 % (37-47); Hemoglobin 9.2 g/dL (12.0-15.0); Lymphocyte # 1.07 X10^3/ul (0.83-4.51); Lymphocyte % 8.6 % (19-41); Mean Corp Hgb Conc 30.8 g/dL (32-36); Mean Corpuscular Hgb 24.8 pg (27.0-32.0); Mean Corpuscular Volume 80.6 fL (81-99); Monocyte# 0.67 X10^3/uL; Monocyte% 5.4 % (0-10); NRBC Flagged by Analyzer 0 % (0-5); Neutrophil # 10.37 X10^3/uL (2.7-7.7); Neutrophil % 82.9 % (47-70); POSITIVE COUNT YES; Platelet Count 88 K/mm3 (150-450); RBC Distribution Width CV 14.7 % (11.6-14.6); RBC Distribution Width SD 43.2 fl (35.1-43.9); Red Blood Count 3.71 M/mm3 (4.2-5.4); White Blood Count 12.5 K/mm3 (4.4-11.0)
[2021-05-03] MEDS: fentaNYL 100 MCG/2 ML Ampul 50 MCG IV (06:08)
[2021-05-03 06:27] LABS: Scan Indicated on CBC? Y/N YES- FLAGS NOTED
--- NOTE | 2021-05-03 06:29 | NURSING ---
called by this RN. updated HGB 9.2 platelets 88. lochia moderate. small trickle noted with each fundal check, no continuous trickling noted. vital signs stable. new order to recheck CBC in 4 hours
[2021-05-03 06:41] LABS: Differential Comment SCANNED
[2021-05-03] MEDS: Acetaminophen 500 MG Tablet 1000 MG PO ×2 (07:21→17:48)
[2021-05-03] MEDS: Ferrous Sulfate 325 MG Tablet PO (09:53)
[2021-05-03 10:21] LABS: Absolute Lymphocyte Count 1.05 X10^3/uL (0.83-4.51); Absolute Neutrophil Count 11.9 X10^3/uL (2.0-7.7); Basophil# 0.02 X10^3/uL; Basophil% 0.1 % (0-1); Eosinophil# 0.06 X10^3/uL; Eosinophils% 0.4 % (0-5); Hematocrit 29.5 % (37-47); Hemoglobin 8.9 g/dL (12.0-15.0); Lymphocyte # 1.05 X10^3/ul (0.83-4.51); Lymphocyte % 7.6 % (19-41); Mean Corp Hgb Conc 30.2 g/dL (32-36); Mean Corpuscular Hgb 24.4 pg (27.0-32.0); Mean Corpuscular Volume 80.8 fL (81-99); Monocyte# 0.71 X10^3/uL; Monocyte% 5.1 % (0-10); NRBC Flagged by Analyzer 0 % (0-5); Neutrophil # 11.92 X10^3/uL (2.7-7.7); Platelet Count 116 K/mm3 (150-450); RBC Distribution Width CV 14.8 % (11.6-14.6); RBC Distribution Width SD 43.4 fl (35.1-43.9); Red Blood Count 3.65 M/mm3 (4.2-5.4); White Blood Count 13.9 K/mm3 (4.4-11.0)
[2021-05-04] VITALS (7 sets, daily range): BP systolic 102–111; BP diastolic 56–61; PULSE 81–90; RESP 14–18; TEMP 36.5–36.9; O2SAT 100
[2021-05-04] MEDS: Acetaminophen 500 MG Tablet 1000 MG PO (01:56)
--- NOTE | 2021-05-04 08:30 | PCM.DC ---
Discharge Instructions Diet Discharge Diet: No restrictions Activity Discharge Activity: Return to Normal Activity, May Not Drive (while taking narcotic pain medications.) and May Shower May resume sexual activity in: 4-6 weeks Dressing / Incision Call your doctor if your incision/area has: Continuous Slow Oozing, Sudden Increased Bleeding, Increased Pain/ Swelling, Increased Redness and Foul Smelling Discharge Follow Up Care Please Follow Up With: Mounika Cantu MD When: Call [phone] to make an appointment with your doctor in 6 weeks. If you had elevated blood pressure or 4th degree laceration, you will need to be seen in 2 weeks. Test Results: Test results from this visit will be discussed in further detail at your follow-up appointment, if applicable. Discharge Plan Admission Admit Date/Time: 05/02/21 23:31 Attending Provider: Mounika Cantu Primary Care Provider: Care Physician,Elida Primary Instructions Forms: Information Patient Instructions: After a Vaginal , : Caring for Yourself Discharge Orders/Prescriptions Prescriptions: No Action PNV-DHA 27 mg iron-1 mg -300 mg capsule 1 cap PO DAILY RF: 0 ferrous sulfate [Feosol] 325 mg (65 mg iron) tablet 325 mg PO DAILY RF: 0 Referrals / Follow Up: Care Physician,No Primary [Primary Care Provider] - Disposition Disposition (needs filled in before D/C Order can be placed): Home, Self Care
[2021-05-04] MEDS: Prenatal Vits Tablet 1 TABLET PO (09:05)
[2021-05-04] MEDS: Ferrous Sulfate 325 MG Tablet PO (09:05)
[2021-05-04] MEDS: Naproxen 500 MG Tablet PO (10:16)
--- NOTE | 2021-05-04 14:59 | NURSING ---
Report given to Polly Ramirez RN. She will assume care of patient at this time.
== END 2021-05-04 15:25 | disposition home or self-care (01) | DRG 560 ==
LOC: WPOUT 23:32 → WP 23:32
PROVIDERS: Admitting Provider Obstetrics & Gynecology; Visit Provider Obstetrics & Gynecology
DX: O99.12 Other diseases of the blood and blood-forming organs and certain disorders involving the immune mechanism complicating childbirth (principal); O69.1XX0 Labor and delivery complicated by cord around neck, with compression, not applicable or unspecified; D69.6 Thrombocytopenia, unspecified; Z37.0 Single live birth; Z87.891 Personal history of nicotine dependence; O62.2 Other uterine inertia; Z3A.38 38 weeks gestation of pregnancy; O62.9 Abnormality of forces of labor, unspecified
CPT/HCPCS: 59025; 59050; 85025; 85027; 86850; 86900; 86901; 87426; 99218; J7120; A4216; G0378

== ENCOUNTER → 2021-06-08 11:42 | Outpatient (CLI) | payer MEDICAID, SELFPAY ==
[2021-06-08 11:59] LABS: Absolute Lymphocyte Count 1.81 X10^3/uL (0.83-4.51); Absolute Neutrophil Count 2.9 X10^3/uL (2.0-7.7); Basophil# 0.04 X10^3/uL; Basophil% 0.6 % (0-1); Eosinophil# 1.17 X10^3/uL; Eosinophils% 18.5 % (0-5); Hematocrit 36.3 % (37-47); Hemoglobin 10.8 g/dL (12.0-15.0); Lymphocyte # 1.81 X10^3/ul (0.83-4.51); Lymphocyte % 28.5 % (19-41); Mean Corp Hgb Conc 29.8 g/dL (32-36); Mean Corpuscular Hgb 24.5 pg (27.0-32.0); Mean Corpuscular Volume 82.3 fL (81-99); Mean Platelet Vol. 12.9 fl (6.2-12.0); Monocyte# 0.41 X10^3/uL; Monocyte% 6.5 % (0-10); NRBC Flagged by Analyzer 0 % (0-5); Neutrophil % 45.7 % (47-70); Platelet Count 159 K/mm3 (150-450); RBC Distribution Width CV 17.7 % (11.6-14.6); RBC Distribution Width SD 53.3 fl (35.1-43.9); Red Blood Count 4.41 M/mm3 (4.2-5.4); White Blood Count 6.3 K/mm3 (4.4-11.0)
== END ==
PROVIDERS: Referring Provider Nurse Practitioner Women's Health; Visit Provider Nurse Practitioner Women's Health
DX: D69.3 Immune thrombocytopenic purpura (principal)
CPT/HCPCS: 36415; 85025

== ENCOUNTER 2021-09-28 10:16 | Outpatient (CLI) | payer MEDICAID, SELFPAY ==
[2021-09-28 09:28] LABS: Absolute Lymphocyte Count 1.56 X10^3/uL (0.83-4.51); Absolute Neutrophil Count 3.9 X10^3/uL (2.0-7.7); Basophil# 0.02 X10^3/uL; Basophil% 0.3 % (0-1); Eosinophil# 0.62 X10^3/uL; Eosinophils% 9.6 % (0-5); Hematocrit 36.5 % (37-47); Hemoglobin 11.4 g/dL (12.0-15.0); Lymphocyte # 1.56 X10^3/ul (0.83-4.51); Lymphocyte % 24.3 % (19-41); Mean Corp Hgb Conc 31.2 g/dL (32-36); Mean Corpuscular Hgb 25.9 pg (27.0-32.0); Mean Corpuscular Volume 82.8 fL (81-99); Mean Platelet Vol. 12.9 fl (6.2-12.0); Monocyte# 0.34 X10^3/uL; Monocyte% 5.3 % (0-10); NRBC Flagged by Analyzer 0 % (0-5); Neutrophil # 3.87 X10^3/uL (2.7-7.7); Neutrophil % 60.2 % (47-70); Platelet Count 172 K/mm3 (150-450); RBC Distribution Width CV 13.5 % (11.6-14.6); RBC Distribution Width SD 40.2 fl (35.1-43.9); Red Blood Count 4.41 M/mm3 (4.2-5.4); White Blood Count 6.4 K/mm3 (4.4-11.0)
[2021-09-28 10:00] LABS: Thyroid Stim Hormone (TSH) 0.88 uIU/mL (0.358-3.74)
--- NOTE | 2021-09-28 10:04 | US_ITS ---
STUDY: ULTRASOUND OF THE FEMALE PELVIS - COMPLETE REASON FOR EXAM: Female, 31 years old. Abnormal uterine bleeding . History of endometriosis. LMP: 09/11/2021. TECHNIQUE: Transabdominal and Transvaginal TECHNICAL QUALITY: Adequate. COMPARISON: None. FINDINGS: The uterus is anteverted and is in a midline position. The uterus measures 8.1 cm x 5.8 cm x 5 cm. Normal uterine cervix. The endometrium measures 6 mm in thickness, and is hyperechoic. There is no demonstrated endometrial mass. There is no demonstrated myometrial mass. I.U.D. - The patient does not have an I.U.D. The right ovary is visualized. The right ovary measures 2.7 cm x 3.6 cm x 2.4 cm. Multiple follicles are seen in the right ovary. There is no visualized right adnexal mass or complex lesion. There is normal arterial and normal venous vascularity. The left ovary is visualized. The left ovary measures 2.9 cm x 1.7 cm x 2.2 cm. There is no left ovarian cyst or ovarian mass. There is no visualized left adnexal mass or complex lesion. There is normal arterial and normal venous vascularity. There is minimal fluid in the cul-de-sac. The pre void volume of the bladder was 351 ml. US/Pelvic (Non ) IMPRESSION: Multiple follicles are seen in the right ovary. Electronically Signed: Slim Veliz MD at 12:14 EST , Service support ,
--- NOTE | 2021-09-28 10:04 | US_ITS ---
STUDY: ULTRASOUND OF THE FEMALE PELVIS - COMPLETE REASON FOR EXAM: Female, 31 years old. Abnormal uterine bleeding . History of endometriosis. LMP: 09/11/2021. TECHNIQUE: Transabdominal and Transvaginal TECHNICAL QUALITY: Adequate. COMPARISON: None. FINDINGS: The uterus is anteverted and is in a midline position. The uterus measures 8.1 cm x 5.8 cm x 5 cm. Normal uterine cervix. The endometrium measures 6 mm in thickness, and is hyperechoic. There is no demonstrated endometrial mass. There is no demonstrated myometrial mass. I.U.D. - The patient does not have an I.U.D. The right ovary is visualized. The right ovary measures 2.7 cm x 3.6 cm x 2.4 cm. Multiple follicles are seen in the right ovary. There is no visualized right adnexal mass or complex lesion. There is normal arterial and normal venous vascularity. The left ovary is visualized. The left ovary measures 2.9 cm x 1.7 cm x 2.2 cm. There is no left ovarian cyst or ovarian mass. There is no visualized left adnexal mass or complex lesion. There is normal arterial and normal venous vascularity. There is minimal fluid in the cul-de-sac. The pre void volume of the bladder was 351 ml. US/Transvaginal Non- IMPRESSION: Multiple follicles are seen in the right ovary. Electronically Signed: Slim Veliz MD at 12:14 EST , Service support ,
== END 2021-09-28 23:59 | disposition short-term general hospital (02) ==
LOC: US 10:16
PROVIDERS: Referring Provider Obstetrics & Gynecology; Visit Provider Obstetrics & Gynecology
DX: N93.9 Abnormal uterine and vaginal bleeding, unspecified (principal)
CPT/HCPCS: 36415; 76830; 76856; 84443; 85025

== ENCOUNTER 2021-10-31 06:36 | Day surgery (SDC) | payer MEDICAID, SELFPAY ==
[2021-10-31] VITALS (11 sets, daily range): BP systolic 99–133; BP diastolic 56–82; PULSE 58–98; RESP 16–20; TEMP 36.4–37.3; O2SAT 97–100; BMI 23.8
--- NOTE | 2021-10-31 | HYST_PTH ---
PATIENT: RONAL ZHANG [place] [facility] [id number] AGE/SX: 31/F ROOM: RE10/31/[address]: Dr. Mounika Cantu MD : 1990 BED: DIS: 10/31/2021 SPEC #: [id number] RECD: 10/31/21 13:16 STATUS: DAIANA SHOAIB #: [id number] GERALDINE: 10/31/21 00:[address]: Mounika Cantu DEPT: SURGICAL PATHOLOGY RECD BY: Nghia Keith ENTERED: 10/31/21 13:16 SP TYPE: HYSTERECT OTHR DR: No Primary Care Phys Tissues: Uterus, NOS Procedures: Surgery Specimen Level V HEADER OPERATION: ERAS, vaginal hysterectomy, bilateral salpingectomy PRE-OP DIAGNOSIS: Abnormal uterine bleeding, anemia TISSUE SUBMITTED: Cervix, uterus, bilateral fallopian tubes MICROSCOPIC DIAGNOSIS Cervix, uterus, bilateral fallopian tubes, vaginal hysterectomy and bilateral salpingectomy: Cervix ? focal mild chronic inflammation. Endometrium ? secretory endometrium. Myometrium - no pathologic diagnosis. Bilateral fallopian tubes - no pathologic diagnosis. CHIOMA:farhan 11/01/2021 MICROSCOPIC DESCRIPTION Slides are reviewed. GROSS DESCRIPTION Received in fixative is one container labeled with the patient's name and designated cervix, uterus, bilateral fallopian tubes. The specimen consists of a hysterectomy specimen consisting of uterus with cervix and detached bilateral fallopian tubes. The uterus with cervix weighs 92 gm and measures 8 x 6 x 4 cm. The serosal surface is nichole, glistening. The ectocervical mucosa is unremarkable. The external os is slit-like in contour. The endocervical canal measures 3 cm in length and the endocervical mucosa is nichole, glistening and unremarkable. The triangular endometrial cavity measures 4 cm in length and up to 2.5 cm in width. The endometrium is nichole, glistening without any mass lesion and measures 0.2 cm in thickness. Sections of the uterine wall do not reveal any mass lesion and measures 2.2 cm in thickness. The fallopian tubes are not identified as right or left and each measure 5 cm in length and 0.5 cm in diameter. The fimbrial ends are identified. Sections reveal unremarkable cut surfaces. [employer] Worker sections are submitted in eight cassettes as follows: 1 - anterior cervix, 2 - posterior cervix, 3 & 4 - anterior uterine wall, 5 & 6 - posterior uterine wall, 7 ? one fallopian, 8 ? second fallopian tube. / CHIOMA:farhan 10/31/2021 TC:3 CPT: 69283
[2021-10-31 07:19] LABS: Internal QC Validated? YES +Cl - CLEAR BKGD; Pregnancy, Urine Negative Negative
[2021-10-31] MEDS: Lactated Ringers 1,000 ML 40 ML IV ×2 (07:26→10:30)
[2021-10-31] MEDS: Celecoxib 200 MG Capsule 400 MG PO (07:27)
[2021-10-31] MEDS: Phenazopyridine 95 MG Tablet 190 MG PO (07:27)
[2021-10-31] MEDS: Gabapentin 600 MG Tablet PO (07:27)
[2021-10-31] MEDS: Acetaminophen 500 MG Tablet 1000 MG PO (07:27)
[2021-10-31] MEDS: Enoxaparin 40 MG/0.4 ML Syringe SC (07:28)
[2021-10-31] MEDS: dexAMETHasone 10 MG/ML Vial 8 MG IV (07:28)
[2021-10-31] MEDS: Scopolamine 1mg/72hr Patch 1 PATCH TD (07:28)
--- NOTE | 2021-10-31 08:50 | HP.PCM_ITS ---
History and Physical Date of Admission: 10/31/21 Visit Reasons: [facility] needs medicaid form [employer] Required: No Is patient in pain?: No Allergies meperidine [From Demerol] Allergy (Severe, Verified 09/28/21 09:36) Other vancomycin Allergy (Severe, Verified 09/28/21 09:36) Anaphylaxis Medications ferrous sulfate 325 mg (65 mg iron) tablet 325 mg PO DAILY 10/11/20 [History Confirmed 09/28/21] multivitamin no.47-iron fum 27 mg-folate no.1 1 mg-dha 300 mg capsule 1 cap PO DAILY 10/11/20 [History Confirmed 09/28/21] Post menopausal: No Patient : No : No [facility] Medical History Adenomyosis of uterus (~09/2018) Exploratory laparoscopy (~09/2018) H/O methicillin resistant Staphylococcus aureus (~2016) History of tetanus, diphtheria, and acellular pertussis booster vaccination (Tdap) Whooping cough Surgical History History of endoscopy History of surgery Family History Aunt Breast cancer Grandfather Lung cancer Social History adopted: No household members: family housing: house number of children: 1 current occupational status: employed current occupation: 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 She has a history of heavy painful menses for years, not controlled with medical management. she has been planning a hysterectomy prior to her most recent and now is ready to proceed. CBC is stable, repeat US ordered. She has tried OCP in the past without a reduction in pain or bleeding. She has a history of anemia and thrombocytopenia and still has mild anemia now. Female Reproductive History Cycle Length: 21-35 Bleeding Duration: 7 associated symptoms: dysmenorrhea, heavy with clots Menopausal Symptoms: No night sweats Pregancy History 3 Elective abortions Hx Para 2 Spontaneous abortions Hx # Term Pregnancies 3 Ectopic pregnancies Hx # Pregnancies Multiple births # of living children 3 Past Pregnancies Del. Date Name GA/Weeks Outcome Route Bth [facility]10 Chavez 40 live - full term 6lbs 4oz Male epidural [facility] 03/16/20 Rachel 40 live - full term 6lbs 15oz Female epidural [facility] 05/03/21 Len 38 live - full term 5lbs Male none [facility] GP Delivery Date: 06/16/10 Started pitocin at [facility], transferred to [facility] due to thromocytopenia. Thromocytopenia throughout pregancy Shara Mcelroy Delivery Date: 03/16/20 gestational thyrombocytopenia ?ITP Shara Mcelroy Delivery Date: 05/03/21 some uterine atony without hemorrhage treated with bimanual massage Pitocin and 1 dose of Methergine Shara Mcelroy ROS Const Constitutional: Denies fatigue, night sweats, weight gain or weight loss ENT ENT: Reports system reviewed and no additional complaints, except as documented Cardio Card: Denies chest pain Resp Resp: Denies cough or dyspnea GI GI: Reports as per HPI; Denies abdominal pain, constipation, nausea or vomiting : Denies nipple discharge, urinary frequency, urinary incontinence, urinary hesitancy, urinary urgency, vaginal discharge, vaginal dryness, vaginal odor or vaginal pruritus Musc Musc: Denies arthralgias, back pain or muscle weakness Skin Skin/Breast: Denies alopecia, change in hair, dry skin, breast mass, breast pain, breast skin changes or nipple discharge Neuro Neuro: Reports system reviewed and no additional complaints, except as documented Psych Psych: Reports system reviewed and no additional complaints, except as documented Endo Endo: Denies cold intolerance, excessive sweating, heat intolerance or polydipsia Paul/Lymph Hematologic/Lymphatic: Denies easy bleeding, Denies easy bruising and Denies lymphadenopathy Exam Const General: cooperative, healthy appearing, comfortable, no acute distress and well developed Orientation: alert HENVT Head: normal to inspection and normocephalic Ears: hearing grossly normal bilaterally and external ears normal Nose: external nose normal and nares normal Face and sinus: normal facial exam Neck Neck: normal visual inspection and no lymphadenopathy Thyroid: thyroid normal Chest Chest palpation & inspection: normal inspection of the chest Resp Effort & Inspection: normal respiratory effort Auscultation: clear to auscultation bilaterally Cardio Rate: regular rate Rhythm: regular rhythm Heart Sounds: S1 normal and S2 normal GI Inspection: normal to inspection and non-distended Palpation: soft and no hepatosplenomegaly Musc Other: gross motor intact no deficits, full bilateral strength Skin General: no rashes or lesions noted Neuro General: patient alert, patient awake, moves all extremities and no focal motor deficits Motor: muscle tone normal throughout Extrem General: normal to inspection and no pedal edema Psych Appearance: grossly normal Mental Status: mental status grossly normal Affect: normal affect Speech and Movement: speech and movement normal Coding Level of Care Code Off vis,est,level 5 Diagnoses Abnormal uterine bleeding N93.9 Anemia due to blood loss, chronic D50.0 Assessment and Plan Assessment and Plan (1) Abnormal uterine bleeding: Status: Acute Comment: suspect adenomyosis. failed medical management in past. tvh bs planned. nl us and cbc. Plan - Dr. Mounika Cantu MD: After discussing the patient's diagnosis and treatment plan options, patient wishes to proceed with surgical management. I have discussed with the patient the risks, benefits, and alternatives of the procedure which include but are not limited to risks of anesthesia, bleeding, infection, possible damage to bowel, bladder, or surrounding vasculature which could lead to additional surgery to evaluate any complications. Patient agrees to procedure and wishes to proceed. ACOG/uptodate references given for additional information regarding procedure. (2) Anemia due to blood loss, chronic: Status: Chronic Comment: menstrual UPDATE- I have seen the patient and performed any clinically relevant updates to the history and physical exam. Mounika Cantu MD
[2021-10-31] MEDS: Cefazolin 2 GM in 0.9% Normal Saline 100 ML IV (08:58)
[2021-10-31 09:00] LABS: Bedside Glucose 103 mg/dL (70-110)
[2021-10-31] MEDS: Lubricating Jelly 60 GM Tube 30 GM (09:16)
[2021-10-31] MEDS: Vasopressin 20 UNITS/ML Vial (09:20)
[2021-10-31] MEDS: Ondansetron 4 MG/2 ML Vial IV (10:02)
--- NOTE | 2021-10-31 10:47 | PCM.OPRPT ---
Problems Associated Problem List Diagnoses (1) Abnormal uterine bleeding: (2) Anemia due to blood loss, chronic: Report of Operation Pre-Operative Diagnosis: see A/P Post-Operative Diagnosis: same Surgery/Procedure Performed:: TV[facility] BS Type of Anesthesia: General Specimen's removed: uterus, tubes Drains: cabello Fluids Replaced: crystalloid Description of Procedure: Patient was taken to the operating room and was placed under general anesthesia was prepped and draped in normal sterile fashion in the dorsal lithotomy position. Preoperative antibiotics and SCDs and Cabello catheter was placed inside the bladder. Weighted speculum was placed in the vagina and the anterior and posterior lip of the cervix was grasped with 2 Enma clamps and circumferentially injected with dilute vasopressin. A circumferential incision was made with a scalpel and the posterior cul-de-sac was entered into sharply and a longneck speculum was placed. The anterior cul-de-sac was also dissected down and entered into sharply and the uterosacral ligaments were clamped cut and suture ligated bilaterally followed by the cardinal ligaments which were Clamped cut and suture ligated bilaterally with 0 Monocryl. The uterus serially descended and progressive bites were taken bilaterally up to the level of the utero-ovarian ligament bilaterally which was clamped transected and double ligated with 0 Monocryl suture and 0 Vicryl free tie. Bilateral fallopian tubes and ovaries were well visualized and noted be within normal limits and the bilateral fallopian tubes were transected across the base with a Martha clamp and removed and sutured with 0 Vicryl suture. Excellent hemostasis was noted. The vagina was closed with [id number] 0 Vicryl pop offs including the posterior and anterior peritoneum in the reapproximation. Excellent hemostasis was noted. All instruments removed from the vagina clear urine was noted at the end of the procedure and patient was awoken and taken recovery in stable condition. Grafts/Implants Used: none Complications none Admit VTE Documentation VTE Present on Admission: No VTE Mechan Device Prophylaxis: SCD's VTE Pharm Prophylaxis ordered?: Yes Multi Select Codes Urinary/Genital Urinary/Genital CPT Codes: 40770 TVH+BS/O <250gr uterus
--- NOTE | 2021-10-31 10:48 | PCM.DC ---
Discharge Instructions Diet Discharge Diet: No restrictions Activity Discharge Activity: Return to Normal Activity, May Not Drive (while taking narcotic pain medications.) and May Shower May resume sexual activity in: 6-8 weeks Dressing / Incision Call your doctor if your incision/area has: Continuous Slow Oozing, Sudden Increased Bleeding, Increased Pain/ Swelling, Increased Redness and Foul Smelling Discharge Call your doctor if you observe: Fever of 101 or Higher, Inability to urinate, Inability to have a bowel movement and Using more than 1 pad per hour Follow Up Care Please Follow Up With: Mounika Cantu MD Test Results: Test results from this visit will be discussed in further detail at your follow-up appointment, if applicable. Discharge Plan Admission Primary Reason for Your Visit: hysterectomy Attending Provider: Mounika Cantu Primary Care Provider: Care Physician,Elida Primary Discharge Orders/Prescriptions Prescriptions: New oxycodone-acetaminophen [Percocet] 5-325 mg tablet 1 tab PO Q6H PRN (Reason: pain) 7 Days Qty: 20 RF: 0 naproxen [naproxen] 500 MG tablet 500 mg PO BID PRN PRN (Reason: Pain) Qty: 30 RF: 1 Continued PNV-DHA 27 mg iron-1 mg -300 mg capsule 1 cap PO DAILY RF: 0 ferrous sulfate [Feosol] 325 mg (65 mg iron) tablet 325 mg PO DAILY RF: 0 Referrals / Follow Up: Care Physician,No Primary [Primary Care Provider] - Disposition Disposition (needs filled in before D/C Order can be placed): Home, Self Care
[2021-10-31 11:06] LABS: Magnesium 2.1 mg/dL (1.6-2.6)
[2021-10-31] MEDS: Ketorolac 30 MG/ML Syringe IV (14:22)
[2021-10-31 14:30] LABS: Absolute Lymphocyte Count 0.41 X10^3/uL (0.83-4.51); Absolute Neutrophil Count 7.4 X10^3/uL (2.0-7.7); Hematocrit 31.7 % (37-47); Hemoglobin 9.9 g/dL (12.0-15.0); Lymphocyte # 0.41 X10^3/ul (0.83-4.51); Lymphocyte % 5.2 % (19-41); Mean Corp Hgb Conc 31.2 g/dL (32-36); Mean Corpuscular Hgb 25.8 pg (27.0-32.0); Mean Corpuscular Volume 82.8 fL (81-99); Monocyte# 0.05 X10^3/uL; Monocyte% 0.6 % (0-10); NRBC Flagged by Analyzer 0 % (0-5); Neutrophil # 7.41 X10^3/uL (2.7-7.7); Neutrophil % 93.9 % (47-70); POSITIVE DIFFERENTIAL YES; Platelet Count 132 K/mm3 (150-450); RBC Distribution Width CV 14.2 % (11.6-14.6); RBC Distribution Width SD 42.5 fl (35.1-43.9); Red Blood Count 3.83 M/mm3 (4.2-5.4); White Blood Count 7.9 K/mm3 (4.4-11.0)
[2021-10-31 14:36] LABS: Differential Indicated SCAN CRITERIA MET
[2021-10-31] MEDS: oxyCODONE 5 MG Tablet PO (14:39)
--- NOTE | 2021-10-31 14:46 | SUR.PHASEII ---
DR HERNANDEZ AWARE OF CBC RESULTS AND THAT PT HAD URINATED. PT OK TO BE D/C'D
== END 2021-10-31 23:59 | disposition home or self-care (01) ==
LOC: SDC 06:37 → AC 06:38
PROVIDERS: Anesthesiology; Referring Provider Obstetrics & Gynecology; Visit Provider Obstetrics & Gynecology
PROC: (CPT 58260; principal; 2021-10-31 08:25)
DX: N93.9 Abnormal uterine and vaginal bleeding, unspecified (principal); D50.0 Iron deficiency anemia secondary to blood loss (chronic); Z87.891 Personal history of nicotine dependence; N94.6 Dysmenorrhea, unspecified
CPT/HCPCS: 58262; 00944; 81025; 82962; 83735; 85025; 86850; 86900; 86901; 87426; 88307; C9803; J7120; J2405; J3475

== ENCOUNTER → 2023-07-17 | Outpatient (CLI) | payer OTHER, SELFPAY ==
[2023-07-17 10:12] LABS: Absolute Lymphocyte Count 1.85 X10^3/uL (0.83-4.51); Absolute Neutrophil Count 4.9 X10^3/uL (2.0-7.7); Basophil# 0.04 X10^3/uL; Basophil% 0.5 % (0-1); Eosinophil# 0.65 X10^3/uL; Eosinophils% 8.2 % (0-5); Hematocrit 41.5 % (37-47); Lymphocyte # 1.85 X10^3/ul (0.83-4.51); Lymphocyte % 23.4 % (19-41); Mean Corp Hgb Conc 31.3 g/dL (32-36); Mean Corpuscular Hgb 28.4 pg (27.0-32.0); Mean Corpuscular Volume 90.6 fL (81-99); Mean Platelet Vol. 12.4 fl (6.2-12.0); Monocyte# 0.49 X10^3/uL; Monocyte% 6.2 % (0-10); NRBC Flagged by Analyzer 0 % (0-5); Neutrophil # 4.87 X10^3/uL (2.7-7.7); Neutrophil % 61.4 % (47-70); Platelet Count 178 K/mm3 (150-450); RBC Distribution Width SD 42.7 fl (35.1-43.9); Red Blood Count 4.58 M/mm3 (4.2-5.4); White Blood Count 7.9 K/mm3 (4.4-11.0)
== END | disposition home or self-care (01) ==
LOC: PAVLAB 09:56
PROVIDERS: Referring Provider Nurse Practitioner Women's Health; Visit Provider Nurse Practitioner Women's Health
DX: D50.0 Iron deficiency anemia secondary to blood loss (chronic) (principal)
CPT/HCPCS: 36415; 85025

== ENCOUNTER → 2023-11-29 | Outpatient (CLI) | payer OTHER, SELFPAY ==
--- NOTE | 2023-11-29 08:17 | US_ITS ---
STUDY: ULTRASOUND OF THE FEMALE PELVIS - LIMITED REASON FOR EXAM: Female, 33 years old pelvic pain -- RT AND LT -- HX OF HYSTERECTOMY 2021 DUE TO ENDOMETRIOSIS TECHNIQUE: Transabdominal and Transvaginal TECHNICAL QUALITY: Adequate. COMPARISON: None. FINDINGS: The patient is status post hysterectomy. The right ovary measures 2.9 cm x 3.1 cm x 2.1 cm. There is no right ovarian cyst or ovarian mass. There is no visualized right adnexal mass or complex lesion. There is normal arterial and normal venous vascularity. The left ovary measures 2.4 cm x 2.7 cm x 1.7 cm. There is no left ovarian cyst or ovarian mass. There is no visualized left adnexal mass or complex lesion. There is normal arterial and normal venous vascularity. There is minimal fluid in the cul-de-sac. US/Pelvic (Non ) IMPRESSION: Normal female pelvis. Status post hysterectomy. Electronically Signed: Silm Veliz MD at 13:58 EDT ,
--- OUTSIDE RECORDS SUMMARY | 2023-11-29 08:30 | XMS RPT_ITS | CCD ---
Author Name Unknown Address [address] [facility] [address] [place] [address] Organization [facility] Care Team Providers Care Local Flatbed Driver Name Role Phone KANNAN SANTA Primary Care Unavailable KANNAN SANTA Primary Care Unavailable Asa Vance Admitting Unavailable Asa Vance Attending Unavailable Jaron Lacey Admitting Unavailable Jaron Lacey H Attending Unavailable KAYCEE PATEL Primary Care Unavailable Imtiaz Alexa L Unavailable Unavailable Unavailable Imtiaz INSPECTOR MATERIAL DISPOSITION-Alexa JENKINS Primary Care Provider ALEXA TSANG L Primary Care Unavailable WOOD ALEXA L Attending Unavailable WOOD, ALEXA L Primary Care Unavailable WOOD, ALEXA L Attending Unavailable WOOD, ALEXA L Primary Care Unavailable WOOD, ALEXA L Attending Unavailable WOOD, ALEXA L Referring Unavailable WOOD, ALEXA L Primary Care Unavailable Allergies Allergy Classification Reported Allergen(s) Allergy Type Date of Onset Reaction(s) Facility (2 sources) meperidine; Translations: [MEPERIDINE HCL] Drug Allergy 1 [facility] Repository (3 sources) vancomycin; Translations: [VANCOMYCIN] Drug Allergy 1 [facility] Repository (1 source) Meperidine; Translations: [Demerol] Drug Allergy [facility] Repository (4 sources) Meperidine; Translations: [Demerol TABS] Drug Allergy 3 Unknown [facility] (1 source) Vancomycin Cross Reactors; Translations: [Vancomycin Cross Reactors] Allergy to drug (finding) [facility] Work Phone: (5 sources) Penicillins; Translations: [PENICILLINS] Drug Intolerance 1 Hives [facility] (5 sources) Vancomycin; Translations: [VANCOMYCIN ANALOGUES] Drug Allergy 1 Anaphylaxis, Hives, Swelling [facility] Work Phone: (2 sources) Meperidine; Translations: [MEPERIDINE] Drug Allergy 3 [facility] Repository Medications Current Medications Medication Drug Class(es) Dates Sig (Normalized) Sig (Original) busPIRone hydrochloride 10 mg oral tablet (2 sources) Start: 04-11-2023 End: 04-10-2024 take 1 tablet by mouth three times daily as needed for anxiety busPIRone (Buspar) 10 mg tablet Indications: Anxiety , Panic attack Take 1 tablet (10 mg) by mouth 3 times a day as needed (anxiety). 30 tablet 1 04/11/2023 08/19/2023 Discontinued (Side effects) sertraline 50 mg oral tablet (2 sources) Serotonin Reuptake Inhibitor Start: 08-19-2023 End: 08-18-2024 take 1 tablet by mouth once daily sertraline (Zoloft) 50 mg tablet Indications: Anxiety Take 1 tablet (50 mg) by mouth once daily. 30 tablet 11 08/19/2023 08/18/2024 Active valACYclovir 1000 mg oral tablet (1 source) Herpesvirus Nucleoside Analog DNA Polymerase Inhibitor, Herpes Simplex Virus Nucleoside Analog DNA Polymerase Inhibitor, Herpes Zoster Virus Nucleoside Analog DNA Polymerase Inhibitor Start: 08-19-2023 End: 08-29-2023 take 1 tablet by mouth three times daily valACYclovir (Valtrex) 1 gram tablet Indications: Herpes zoster without complication Take 1 tablet (1,000 mg) by mouth 3 times a day for 10 days. 30 tablet 0 08/19/2023 08/29/2023 Active Completed/Discontinued Medications Medication Drug Class(es) Dates Sig (Normalized) Sig (Original) No Reported Medications (1 source) No Reported Medi cations Quantity: 0 Refills: 0 Ordered: 09-Apr-2022 DO Active Problems Active Problems Problem Classification Problem Date Documented Date Episodic/Chronic Anxiety disorders (14 sources) Anxiety; Translations: [Anxiety disorder, unspecified] Onset: 04-11-2023 04-11-2023 Chronic Coagulation and hemorrhagic disorders (3 sources) Thrombocytopenic purpura; Translations: [Immune thrombocytopenic purpura] Onset: 06-08-2021 04-11-2023 Chronic Headache; including migraine (3 sources) Menstrual migraine; Translations: [Menstrual migraine, not intractable, without status migrainosus] Onset: 01-16-2017 04-11-2023 Chronic Menstrual disorders (8 sources) Dysmenorrhea, unspecified; Translations: [Dysmenorrhea] Onset: 01-16-2017 04-11-2023 Chronic Other female genital disorders (2 sources) Abnormal uterine and vaginal bleeding, unspecified; Translations: [Abnormal uterine and vaginal bleeding, unspecified] Onset: 08-27-2018 Chronic Viral infection (5 sources) Herpes zoster without complication; Translations: [Zoster without complications] Onset: 08-19-2023 08-19-2023 Episodic Past or Other Problems Problem Classification Problem Date Documented Date Episodic/Chronic Abdominal pain (3 sources) Chronic pelvic pain of female; Translations: [Pelvic and perineal pain] Onset: 09-17-2018 04-11-2023 Episodic Bacterial infection; unspecified site (3 sources) History of methicillin resistant Staphylococcus aureus infection; Translations: [Personal history of Methicillin resistant Staphylococcus aureus infection] Onset: 01-16-2017 04-11-2023 Episodic Deficiency and other anemia (4 sources) Iron deficiency anemia; Translations: [Iron deficiency anemia, unspecified] Onset: 04-08-2023 04-08-2023 Episodic Deficiency and other anemia (3 sources) Normocytic normochromic anemia; Translations: [Anemia, unspecified] Onset: 01-16-2017 04-11-2023 Episodic Other complications of (3 sources) Benign gestational thrombocytopenia; Translations: [Other diseases of the blood and blood-forming organs and certain disorders involving the immune mechanism complicating , unspecified trimester] Onset: 01-16-2017 04-11-2023 Episodic Other female genital disorders (3 sources) Cervical intraepithelial neoplasia grade 1; Translations: [Mild cervical dysplasia] Onset: 05-14-2012 04-11-2023 Episodic Other injuries and conditions due to external causes (4 sources) Traumatic injury; Translations: [Unspecified site injury] Onset: 01-22-2016 Resolved: 04-08-2023 04-08-2023 Episodic Spondylosis; intervertebral disc disorders; other back problems (1 source) Lumbago with sciatica, left side; Translations: [Lumbago with sciatica, left side] Onset: 10-14-2017 Episodic Superficial injury; contusion (4 sources) Contusion of foot; Translations: [Contusion of foot] Onset: 04-08-2023 Resolved: 04-08-2023 04-08-2023 Episodic Unclassified (3 sources) Onset: 04-11-2023 Resolved: 09-19-2023 04-11-2023 Results Test Name Value Interpretation Reference Range Facil ity Vital Signs Date Time Vital Sign Value Performing Clinician Faci lity 09-19-2023 09:26-0500 Body height 165.1 cm Alexa Tsang INSPECTOR MATERIAL DISPOSITION-RISK MANAGEMENT MANAGER Work Phone: [facility] 09-19-2023 09:26-0500 Body mass index (BMI) [Ratio] 23.71 kg/m2 Alexa Tsang INSPECTOR MATERIAL DISPOSITION-RISK MANAGEMENT MANAGER Work Phone: [facility] 09-19-2023 09:26-0500 Body weight 64.64 kg Alexa Tsang INSPECTOR MATERIAL DISPOSITION-RISK MANAGEMENT MANAGER Work Phone: [facility] 09-19-2023 09:26-0500 Diastolic blood pressure 72 mm[Hg] Alexa Tsang INSPECTOR MATERIAL DISPOSITION-RISK MANAGEMENT MANAGER Work Phone: [facility] 09-19-2023 09:26-0500 Heart rate 94 /min Alexa Tsang INSPECTOR MATERIAL DISPOSITION-RISK MANAGEMENT MANAGER Work Phone: [facility] 09-19-2023 09:26-0500 SaO2% (BldA) [Mass fraction] 98 % Alexa Tsang INSPECTOR MATERIAL DISPOSITION-RISK MANAGEMENT MANAGER Work Phone: [facility] 09-19-2023 09:26-0500 Systolic blood pressure 124 mm[Hg] Alexa Tsang INSPECTOR MATERIAL DISPOSITION-RISK MANAGEMENT MANAGER Work Phone: [facility] 08-19-2023 11:25-0500 Body height 167.6 cm Alexa Tsang INSPECTOR MATERIAL DISPOSITION-RISK MANAGEMENT MANAGER Work Phone: [facility] 08-19-2023 11:25-0500 Body mass index (BMI) [Ratio] 23.66 kg/m2 Alexa Tsang INSPECTOR MATERIAL DISPOSITION-RISK MANAGEMENT MANAGER Work Phone: [facility] 08-19-2023 11:25-0500 Body weight 66.5 kg Alexa Wood INSPECTOR MATERIAL DISPOSITION-RISK MANAGEMENT MANAGER Work Phone: [facility] 08-19-2023 11:25-0500 Diastolic blood pressure 70 mm[Hg] Alexa Wood INSPECTOR MATERIAL DISPOSITION-RISK MANAGEMENT MANAGER Work Phone: [facility] 08-19-2023 11:25-0500 Heart rate 91 /min Alexa Wood INSPECTOR MATERIAL DISPOSITION-RISK MANAGEMENT MANAGER Work Phone: [facility] 08-19-2023 11:25-0500 SaO2% (BldA) [Mass fraction] 97 % Alexa Wood INSPECTOR MATERIAL DISPOSITION-RISK MANAGEMENT MANAGER Work Phone: [facility] 08-19-2023 11:25-0500 Systolic blood pressure 120 mm[Hg] Alexa Wood INSPECTOR MATERIAL DISPOSITION-RISK MANAGEMENT MANAGER Work Phone: [facility] 04-11-2023 10:10-0400 Body height 165.1 cm Alexa Wood INSPECTOR MATERIAL DISPOSITION-RISK MANAGEMENT MANAGER Work Phone: [facility] 04-11-2023 10:10-0400 Body mass index (BMI) [Ratio] 23.45 kg/m2 Alexa Wood INSPECTOR MATERIAL DISPOSITION-RISK MANAGEMENT MANAGER Work Phone: [facility] 04-11-2023 10:10-0400 Body weight 63.91 kg Alexa Wood INSPECTOR MATERIAL DISPOSITION-RISK MANAGEMENT MANAGER Work Phone: [facility] 04-11-2023 10:10-0400 Diastolic blood pressure 62 mm[Hg] Alexa Wood INSPECTOR MATERIAL DISPOSITION-RISK MANAGEMENT MANAGER Work Phone: [facility] 04-11-2023 10:10-0400 Heart rate 90 /min Alexa Wood INSPECTOR MATERIAL DISPOSITION-RISK MANAGEMENT MANAGER Work Phone: [facility] 04-11-2023 10:10-0400 SaO2% (BldA) [Mass fraction] 98 % Alexa Wood INSPECTOR MATERIAL DISPOSITION-RISK MANAGEMENT MANAGER Work Phone: [facility] 04-11-2023 10:10-0400 Systolic blood pressure 116 mm[Hg] Alexa Wood INSPECTOR MATERIAL DISPOSITION-RISK MANAGEMENT MANAGER Work Phone: [facility] 04-09-2022 10:09-0400 Body height 162.56 cm Alexa Tsang Work Phone: [facility] Work Phone: 04-09-2022 10:09-0400 Body mass index (BMI) [Ratio] 23.86 kg/m2 Alexa Tsang Work Phone: [facility] Work Phone: 04-09-2022 10:09-0400 Body surface area Derived from formula 1.68 m2 Alexa Tsang Work Phone: [facility] Work Phone: 04-09-2022 10:09-0400 Body weight 63.05 kg Alexa Tsang Work Phone: [facility] Work Phone: 04-09-2022 10:09-0400 Diastolic blood pressure 68 mm[Hg] Alexa Tsang Work Phone: [facility] Work Phone: 04-09-2022 10:09-0400 Heart rate 76 /min Alexa Tsang Work Phone: [facility] Work Phone: 04-09-2022 10:09-0400 Systolic blood pressure 112 mm[Hg] Alexa Tsang Work Phone: [facility] Work Phone: Encounters Encounter Date Encounter Type Care Provider Facility Start: 09-19-2023 End: 09-19-2023 ambulatory [facility] Start: 09-19-2023 End: 09-19-2023 Office outpatient visit 15 minutes Alexa Tsang INSPECTOR MATERIAL DISPOSITION-RISK MANAGEMENT MANAGER Work Phone: [facility] Procedures Date Procedure Procedure Detail Performing Clinician Start: 09-19-2023 FOLLOW UP IN FAMILY MEDICINE ALEXA TSANG Start: 04-11-2023 TSH WITH REFLEX TO F REE T4 IF ABNORMAL ALEXA TSANG Start: 12-05-2022 Lipid 1996 panel - S brittney or Plasma Alexa Tsang INSPECTOR MATERIAL DISPOSITION-RISK MANAGEMENT MANAGER Work Phone: Start: 10-17-2021 Hysterectomy Alexa Tsang Work Phone: Plan of Treatment Date Care Activity Detail Author Start: 2039 Zoster Vaccines (1 of 2) Zoste r Vaccines (1 of 2) [facility] Start: 02-23-2031 DTaP/Tdap/Td Vaccine s (4 - Td or Tdap) DTaP/Tdap/Td Vaccines (4 - Td or Tdap) [facility] Start: 12-06-2027 Lipid panel Lipid Panel [facility] Start: 04-13-2024 End: 04-13-2024 Patient encounter procedure 04/13/2024 9:40 AM EDT Office Visit [facility] [address] [place] [id number] Alexa Tsang, INSPECTOR MATERIAL DISPOSITION-RISK MANAGEMENT MANAGER [address] [id number] [facility] Start: 04-12-2024 Yearly Adult Physical Yearly Adult P hysical [facility] Start: 09-19-2023 End: 09-19-2023 Patient encounter procedure 09/19/2023 9:20 AM EST Office Visit [facility] [address] [place] [id number] Alexa Tsang, INSPECTOR MATERIAL DISPOSITION-RISK MANAGEMENT MANAGER [address] [place] [address] [facility] Start: 05-17-2023 Influenza vaccination Influenza Vacc ine (#1) [facility] Start: 04-11-2023 End: 04-11-2024 TSH with reflex to Free T4 if abnormal [facility] Service Area Work Phone: Immunizations Immunization Date Immunization Notes Care Provider Fa cility 02-23-2021 tetanus toxoid, redu anay diphtheria toxoid, and acellular pertussis vaccine, adsorbed Alexa Tsang Work Phone: [facility] 12-16-2019 tetanus toxoid, redu anay diphtheria toxoid, and acellular pertussis vaccine, adsorbed Alexa Tsang Work Phone: [facility] Work Phone: 01-16-2017 tetanus toxoid, redu anay diphtheria toxoid, and acellular pertussis vaccine, adsorbed Alexa Tsang Work Phone: [facility] Payers Date Payer Category Payer [employer] ( and others[place] [employer] [id number] 2022-Present [address] [place] [address] [id number] 2022 [employer] ( and others) [id number] 2015 Unknown [id number] 1989 Unknown [id number] 1989 Unknown [id number] 1989 Unknown [id number] 1989 Unknown [id number] 1989 Unknown [id number] 1989 Unknown [id number] 1989 Unknown [id number] Unknown ANTHEM Social History Date Type Detail Facility Start: 04-11-2023 End: 09-19-2023 Former smoker Former smoker [facility] Work Phone: Start: 04-11-2023 Tobacco smoking status NHIS Ex-smoker [facility] Work Phone: History of tobacco use Current smoker [facility] Work Phone: History of tobacco use Cigarette Smoker [facility] Work Phone: Start: 04-11-2023 Tobacco use and exposure Smokeless tobacco non-user [facility] Work Phone: Start: 04-11-2023 End: 09-19-2023 Alcohol intake Ex-drinker (finding) [facility] Work Phone: Start: 04-11-2023 End: 09-19-2023 Tobacco use panel [facility] Work Phone: Start: 1990 Sex Assigned At Not on file [facility] Work Phone: Start: 04-01-2023 End: 09-19-2023 Exposure to SARS-CoV-2 (event) Not sure [facility] Start: 1990 Sex Assigned At Female [facility] Start: 08-19-2023 Gender identity Identifies as female gender (finding) [facility] Work Phone: Clinical Notes 04-09-2021 to 09-19-2023 ZEN Escobar - 09/19/2023 9:20 AM ESTPatient InstructionsZEN Escobar - 08/19/2023 11:40 AM ESTPatient InstructionsZEN Escobar - 04/11/2023 10:00 AM EDT Note Date & Type Note Facility 09-19-2023 History of Present illness Narrative Subjective Patient ID: Ewa Duarte is a 33 y.o. female who presents for Anxiety (6 wk fu ). Ewa comes to the office for 6-week follow-up on anxiety. Previously intolerant to BuSpar. Added Zoloft 50 mg and she states she feels like a brand new person . Not as irritable w/ family/child, sleep fair (will chg to taking Zoloft in the morning). Rash fading to R flank region from previous HZ. No pain Depression screening completed today. PHQ 2 score: 0. Re-evaluate annually and as needed Anxiety Presents for follow-up visit. Patient reports no decreased concentration, depressed mood, excessive worry, irritability, nervous/anxious behavior, obsessions, panic or suicidal ideas. The quality of sleep is fair. Nighttime awakenings: occasional. Compliance with medications is 76-100%. Review of Systems Constitutional: Negative for irritability. Skin: Rash fading to the right flank region from her previous HZ outbreak Psychiatric/Behavioral: Negative for decreased concentration, hallucinations and suicidal ideas. The patient is not nervous/anxious. Objective BP 124/72 Pulse 94 Ht 1.651 m (5' 5 ) Wt 64.6 kg (142 lb 8 oz) SpO2 98% BMI 23.71 kg/m Physical Exam Vitals and nursing note reviewed. Constitutional: Appearance: Normal appearance. HENT: Head: Normocephalic. Cardiovascular: Rate and Rhythm: Normal rate and regular rhythm. Heart sounds: Normal heart sounds. Pulmonary: Effort: Pulmonary effort is normal. Breath sounds: Normal breath sounds. Musculoskeletal: Cervical back: Normal range of motion. Skin: General: Skin is warm and dry. Comments: Faint rash right flank region, no active lesions Neurological: General: No focal deficit present. Mental Status: She is alert and oriented to person, place, and time. Psychiatric: Mood and Affect: Mood normal. Thought Content: Thought content normal. Assessment/Plan Problem List Items Addressed This Visit ICD-10-CM Anxiety F41.9 1. Anxiety Follow Up In Primary Care - Established Improved on zoloft 50mg daily documented in this encounter [facility] Work Phone: 09-19-2023 Instructions ZEN Escobar - 09/19/2023 9:20 AM EST Continue Zoloft daily; changed to morning dosing Recommend receiving your varicella vaccination documented in this encounter [facility] Work Phone: 08-19-2023 History of Present illness Narrative Images from the original note were not included. Subjective Patient ID: Ewa Duarte is a 32 y.o. female who presents for Rash (Pain on right side, red rash on back ). Ewa comes to the office for concerns of a rash. Pain started on Sat to RLQ w/ extension to R flank region. Noted a rash yesterday to the R side of thoracic region. Pain described as burning/sharp in nature. Anxiety- intolerant to buspar; anxiety most days of wk. Wants to chg to a medication for daily use Rash This is a new problem. The current episode started yesterday. The problem is unchanged. The affected locations include the back and abdomen (RLQ extending to R Flank region). The rash is characterized by burning and blistering. She was exposed to nothing. Pertinent negatives include no cough, diarrhea, fever or joint pain. Past treatments include analgesics. The treatment provided mild relief. Review of Systems Constitutional: Negative for fever. Respiratory: Negative for cough. Gastrointestinal: Negative for diarrhea. Musculoskeletal: Negative for joint pain. Skin: Positive for rash. Psychiatric/Behavioral: The patient is nervous/anxious. Objective BP 120/70 Pulse 91 Ht 1.676 m (5' 6 ) Wt 66.5 kg (146 lb 9.6 oz) SpO2 97% BMI 23.66 kg/m Physical Exam Constitutional: Appearance: Normal appearance. Skin: Findings: Rash present. Rash is vesicular. Comments: Few scattered linear pattern of vesicles to R thoracic region Neurological: Mental Status: She is alert. Psychiatric: Mood and Affect: Mood normal. Behavior: Behavior normal. Assessment/Plan Problem List Items Addressed This Visit ICD-10-CM Anxiety - Primary F41.9 Relevant Medications sertraline (Zoloft) 50 mg tablet Other Relevant Orders Follow Up In Primary Care - Established Herpes zoster without complication B02.9 Relevant Medications valACYclovir (Valtrex) 1 gram tablet documented in this encounter [facility] Work Phone: 08-19-2023 Instructions ZEN Escobar - 08/19/2023 11:40 AM EST Valtrex 1G three times a day x10D; keep lesions clean & dry until healed over. Recommend shingles vaccine after acute shingles clears. Start zoloft 50mg daily for anxiety. Follow-up in 4-6wks documented in this encounter [facility] Work Phone: 04-11-2023 History of Present illness Narrative Subjective Patient ID: Ewa Duarte is a 32 y.o. female who presents for Annual Exam (Wellness ). Ewa comes to the office today for a wellness exam No surgeries or hospitalizations within the last year 2021 partial hysterectomy hysterectomy for endometriosis. Has established [facility] [employer] and completes Paps through them Tdap 2019 Recommend yearly influenza vaccination h/o Childhood Asthma- no raymond use; former smoker Physical activity walks daily 2-3 miles + Anxiety especially when driving at night and with the responsibility of caring for her children. 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 More stress with being the sole caregiver of her 3 children. Has noticed more anxiety over the course of the last 6 months. No depressive symptoms/suicidal or homicidal ideations. No hallucinations. Sleep: Fair depending upon the day. Had labs completed for wellness through her 's employer. Labs were completed on 12/05/2022 through [facility]. Reviewed labs with patient today. Uric acid 4.7, BUN 11, iron 126, creatinine 0.74, GFR 109, glucose 83, sodium 140, potassium 4.1, alk phos 87, LDH 167, AST 15 ALT 13, GGT 9, total cholesterol 182, triglycerides 74, LDL 115, HDL 53. Remote history of iron deficiency anemia. Is starting to consume more red meats. Most recent iron study normal states had a CBC in the fall through her [employer] reports those were normal as well. Review of Systems Constitutional: Negative for fatigue and unexpected weight change. Gastrointestinal: Negative for blood in stool, constipation and diarrhea. Endocrine: Negative for cold intolerance and heat intolerance. Psychiatric/Behavioral: Positive for sleep disturbance. Negative for dysphoric mood, hallucinations and suicidal ideas. The patient is nervous/anxious. Objective BP 116/62 Pulse 90 Ht 1.651 m (5' 5 ) Wt 63.9 kg (140 lb 14.4 oz) SpO2 98% BMI 23.45 kg/m Physical Exam Vitals and nursing note reviewed. Constitutional: Appearance: Normal appearance. Neck: Thyroid: No thyromegaly. Cardiovascular: Rate and Rhythm: Normal rate and regular rhythm. Heart sounds: Normal heart sounds. Pulmonary: Effort: Pulmonary effort is normal. Breath sounds: Normal breath sounds. Skin: General: Skin is warm and dry. Neurological: General: No focal deficit present. Mental Status: She is alert and oriented to person, place, and time. Psychiatric: Mood and Affect: Mood normal. Thought Content: Thought content normal. Assessment/Plan Problem List Items Addressed This Visit Anxiety - Primary Relevant Medications busPIRone (Buspar) 10 mg tablet Wellness examination Relevant Orders TSH with reflex to Free T4 if abnormal Panic attack Relevant Medications busPIRone (Buspar) 10 mg tablet documented in this encounter [facility] Work Phone: 04-11-2023 Instructions ZEN Escobar - 04/11/2023 10:00 AM EDT BuSpar 10 mg 3 times a day as needed for anxiety May try [id number] Ashwaganda Office visit in 1 year Check TSH documented in this encounter [facility] Work Phone: 04-09-2021 History of Present illness Narrative Ewa comes to the office to establish care.2019 had a partial hysterectomy for endometriosis. Last Pap within the last year and patient reports was normal. Has [facility] in [place]. + SBE.former smoker; quit 3.5Y ago, previously smoked approximately 1/2 pack/day starting at the age of 17. Denies alcohol or recreational drug use. Physical activity: Walks 2 miles daily with her children. 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 PHQ 2 score: 0+ Childhood asthma & had whooping cough as child. No Raymond use. Only notes some trouble with cough in extreme cold and when she runs.no routine medications or vitaminsfxhx reviewed today. Mother and father and siblings wellConsumes no red meat pork turkey. Eats some fish.had labs thru [facility] (november) and those reviewed with patient today. RBC indices show a mild anemia. Hemoglobin 11.2 hematocrit 35.8. MCH 25.1 MCHC 31.3 and MCV 80.Tetanus administered in COVID/influenza vaccinations -[facility] Work Phone: documented in this encounter [facility] Work Phone: Evaluation note* Diagnosis Anxiety- Primary Anxiety state, unspecified Herpes zoster without complication documented in this encounter [facility] Work Phone: Evaluation note* Diagnosis Anxiety Anxiety state, unspecified documented in this encounter [facility] Work Phone: Reason for referral (narrative)* Consultation (Routine) - Authorized Specialty Diagnoses / Procedures Referred By Chelsy alberto Referred To Contact Primary Care Diagnoses Anxiety Procedures Follow Up In Primary Care - Established Alexa Tsang APRN-GREGORY [address] [place] [address] Referral ID Status Reason Start Date Expiration Date V isits Requested Visits Authorized [id number] Authorized 08/19/2023 08/18/2024 1 1 [facility] Work Phone: Summary Purpose Family History No Family History Records FoundUnknown Family Member Name Dates Details No pertinent family history: Mother, Father(V49.89, Z78.9) Status:Active Advance Directives No Advanced Directives Records FoundNo Advanced Directives Records FoundNo Advanced Directives Records FoundNo Advanced Directives Records FoundNo Advanced Directives Records FoundNo Advanced Directives Records FoundNo Advanced Directives Records FoundNo Advanced Directives Records Found Procedure Findings Note [facility] [address] [place] [address] NAME EWA ALVARES [facility] [id number] 1990 DATE 10/14/2018 OPERATIVE REPORT / PROCEDURE NOTE SURGEON ASA VANCE MD PREOPERATIVE DIAGNOSIS Chronic pelvic pain. POSTOPERATIVE DIAGNOSES 1. Chronic pelvic pain. 2. Essentially normal pelvis, possible adenomyosis of the uterus. PROCEDURE PERFORMED Diagnostic laparoscopy. ANESTHESIA General. COMPLICATIONS None. ESTIMATED BLOOD LOSS 5 mL. CONDITION Patient was returned awake and stable to recovery room. DESCRIPTION OF PROCEDURE The patient was taken to the operating room and placed in a supine position on the operating table. After successful induction of a general anesthetic, she was placed in the lithotomy position and prepped and draped in the usual fashion for laparoscopy. An [place] manipulator and tenaculum were affixed to her cervix and her bladder was drained. Attention was turned to her abdomen where a small vertical incision was made at t (more content not included)... Chief Complaint EST NEW. GENERAL CHECK UP/ WELLNESS Additional Source Comments INFORMATION SOURCE (unrecogn ized section and content) DATE CREATED AUTHOR AUTHOR'S ORGANIZ ATION 10/28/2018 [facility] DATE CREATED AUTHOR AUTHOR'S ORGANIZ ATION 11/03/2018 [facility] DATE CREATED AUTHOR AUTHOR'S ORGANIZ ATION 11/29/2018 [facility] DATE CREATED AUTHOR AUTHOR'S ORGANIZ ATION 04/09/2022 [employer] DATE CREATED AUTHOR AUTHOR'S ORGANIZ ATION 04/12/2023 [facility] DATE CREATED AUTHOR AUTHOR'S ORGANIZ ATION 04/15/2023 [facility] DATE CREATED AUTHOR AUTHOR'S ORGANIZ ATION 09/22/2023 [facility] Reason for Visit (unrecogniz ed section and content) Reason Comments Rash Pain on right side, red rash on back Reason Comments Anxiety 6 wk fu Specialty Diagnoses / Procedures Referred By Contsumanth t Referred To Contact Primary Care Diagnoses Anxiety Procedures Follow Up In Primary Care - Established Alexa Tsang, INSPECTOR MATERIAL DISPOSITION-RISK MANAGEMENT MANAGER [address] [place] [address] Referral ID Status Reason Start Date Expiration Date V isits Requested Visits Authorized [id number] Authorized 08/19/2023 08/18/2024 1 1 Care Teams (unrecognized sec tion and content) Local Flatbed Driver Relationship Specialty Start Date End Date Alexa Tsang, INSPECTOR MATERIAL DISPOSITION-RISK MANAGEMENT MANAGER [address] [place] [id number] PCP - General 04/09/22 Local Flatbed Driver Relationship Specialty Start Date End Date Alexa Tsang, INSPECTOR MATERIAL DISPOSITION-RISK MANAGEMENT MANAGER [address] [place] [address] PCP - General 04/09/22 FOR RECORDS PERTAINING TO PATIENTS WHO ARE OR HAVE BEEN ENROLLED IN A CHEMICAL DEPENDENCY/SUBSTANCEABUSE PROGRAM, SOME INFORMATION MAY BE OMITTED. This clinical summary was aggregated from multiple sources. Caution should be exercised in using it in the provision of clinical care. This summary normalizes information from multiple sources, and as a consequence, information in this document may materially change the coding, format and clinical context of patient data. In addition, data may be omitted in some cases. CLINICAL DECISIONS SHOULD BE BASED ON THE PRIMARY CLINICAL RECORDS. [facility] [employer]ids, [facility]. provides no warranty or guarantee of the accuracy or completeness of information in this document.
== END | disposition home or self-care (01) ==
LOC: OPUS 08:16
PROVIDERS: PCP Nurse Practitioner Family; Referring Provider Obstetrics & Gynecology; Visit Provider Obstetrics & Gynecology
DX: R10.2 Pelvic and perineal pain (principal)
CPT/HCPCS: 76830; 76856

== ENCOUNTER → 2024-07-22 | Outpatient (CLI) | payer OTHER, SELFPAY ==
[2024-07-22 17:03] LABS: Absolute Lymphocyte Count 1.51 X10^3/uL (0.83-4.51); Basophil# 0.04 X10^3/uL; Basophil% 0.6 % (0-1); Eosinophil# 0.61 X10^3/uL; Eosinophils% 9.2 % (0-5); Hematocrit 38.9 % (37-47); Hemoglobin 12.5 g/dL (12.0-15.0); Lymphocyte # 1.51 X10^3/ul (0.83-4.51); Lymphocyte % 22.7 % (19-41); Mean Corp Hgb Conc 32.1 g/dL (32-36); Mean Corpuscular Hgb 28.7 pg (27.0-32.0); Mean Corpuscular Volume 89.2 fL (81-99); Mean Platelet Vol. 12.5 fl (6.2-12.0); Monocyte# 0.51 X10^3/uL; Monocyte% 7.7 % (0-10); NRBC Flagged by Analyzer 0 % (0-5); Neutrophil # 3.96 X10^3/uL (2.7-7.7); Neutrophil % 59.5 % (47-70); Platelet Count 153 K/mm3 (150-450); RBC Distribution Width CV 12.5 % (11.6-14.6); RBC Distribution Width SD 41.2 fl (35.1-43.9); Red Blood Count 4.36 M/mm3 (4.2-5.4); White Blood Count 6.7 K/mm3 (4.4-11.0)
[2024-07-22 17:15] LABS: Vitamin D,25 Hydroxy 19.7 ng/mL
[2024-07-22 17:29] LABS: Estradiol 26.2 pg/mL; Follicle Stimulating Hormone 6.8 mIU/mL; T4 Free Direct 0.94 ng/dL (0.76-1.46)
[2024-07-24 04:08] LABS: Thyroid Peroxidase AB 102 IU/mL (0-34)
== END | disposition home or self-care (01) ==
LOC: BWCLAB 15:45
PROVIDERS: PCP Nurse Practitioner Family; Referring Provider Nurse Practitioner Women's Health; Visit Provider Nurse Practitioner Women's Health
DX: R23.2 Flushing (principal); Z13.29 Encounter for screening for other suspected endocrine disorder; Z13.21 Encounter for screening for nutritional disorder
CPT/HCPCS: 36415; 82306; 82670; 83001; 84439; 84443; 85025; 86376